=== PATIENT | female | born 1945 | race African-American/Black ===

== ENCOUNTER 2018-04-25 13:32 | Observation (INO) | payer MEDICARE ==
[2018-04-23 18:04] LABS: BASOPHILS % 0.7 % (0.0-1.0); HEMATOCRIT 37.1 % (34.2-44.1); HEMOGLOBIN 12.4 g/dL (12.0-16.0); LYMPHOCYTES # (AUTO) 0.9 (1.0-3.2); LYMPHOCYTES % 15.4 % (18.0-39.1); MEAN CORPUSCULAR HEMOGLOBIN 29.5 pg (28-32); MEAN CORPUSCULAR HGB CONC 33.4 g/dL (31-35); MEAN CORPUSCULAR VOLUME 88.1 fL (81-99); MONOCYTES # (AUTO) 0.1 (0.2-0.8); MONOCYTES % 1.4 % (4.4-11.3); NEUTROPHILS # (AUTO) 4.7 (2.1-6.9); NEUTROPHILS % 82.3 % (38.7-80.0); PLATELET COUNT 202 x10e3/uL (140-360); RED BLOOD COUNT 4.21 x10e6/uL (3.6-5.1); RED CELL DISTRIBUTION WIDTH 12.8 % (11.7-14.4)
[2018-04-23 18:16] LABS: INR 0.95; PROTHROMBIN TIME 13.5 seconds (11.9-14.5)
[2018-04-23 18:25] LABS: ALBUMIN 3.8 g/dL (3.5-5.0); ALBUMIN/GLOBULIN RATIO 0.8 (0.8-2.0); ANION GAP 17.5 mmol/L (8-16); CALCIUM 9.9 mg/dL (8.4-10.2); CHOL/HDL RATIO 2.4 (3.0-3.6); CREATININE, SERUM 1.29 mg/dL (0.57-1.11); POTASSIUM 4.5 mmol/L (3.5-5.1)
[~2018-04-25] VITALS: Ht 162.6 cm; Wt 57.6 kg
--- OUTSIDE RECORDS SUMMARY | 2018-04-25 13:35 | XMS REPORT | Clinical Summary ---
Author Author [facility] Address Unknown Phone Unavailable Care Team Providers Care Merchant Banker Name Role Phone Lg Dawson MD PCP Unavailable Allergies Comments Active Allergy Reactions Severity Noted Date Codeine Nausea And 07/06/2013 Vomiting Iodine And Iodide Anaphylaxis, High 07/06/2013 Containing Products Swelling Medications End Date Status Medication Sig Dispensed Refills Start Date Active isosorbide mononitrate Take 120 mg 0 (IMDUR) 30 MG 24 hr by mouth tablet daily . Active losartan (COZAAR) 100 MG Take 100 mg 0 tablet by mouth daily. Active amLODIPine (NORVASC) 5 MG Take 10 mg by 0 tablet mouth daily . Active diazepam (VALIUM) 2 MG Take 10 mg by 0 tablet mouth every 12 (twelve) hours as needed for Anxiety . Active insulin glargine (LANTUS) Inject 26 0 100 unit/mL injection Units subcutaneousl y nightly Use as directed. Active insulin lispro (HUMALOG) Inject 0 100 unit/mL injection subcutaneousl y 3 (three) times daily before meals. Active nitroglycerin Place 1 spray 0 (NITROLINGUAL) 0.4 under the mg/dose spray tongue every 5 (five) minutes as needed. Active aspirin 325 MG EC tablet Take 325 mg 0 by mouth daily. Active atorvastatin (LIPITOR) 40 Take 40 mg by 0 MG tablet mouth daily. Active folic acid (FOLVITE) 400 Take 400 mcg 0 MCG tablet by mouth daily. Active metoprolol (LOPRESSOR) Take 1 tablet 90 tablet 0 12/20/201 100 MG tablet (100 mg 5 total) by mouth 2 (two) times daily. Active ranolazine (RANEXA) 500 Take 1 tablet 60 tablet 0 12/20/201 MG 12 hr tablet (500 mg 5 total) by mouth 2 (two) times daily. Active omeprazole (PRILOSEC) 40 Take 1 90 capsule 11 04/17/201 MG capsule capsule (40 5 mg total) by mouth 2 (two) times daily. Active Problems Problem Noted Date Upper GI bleed 04/16/2015 Gastric ulcer 04/16/2015 Gastritis 04/16/2015 Abnormal EKG 04-15-2015 x 2 04/16/2015 Anemia 04/16/2015 GI bleed 04/15/2015 Hyperglycemia 04/15/2015 Social History Date Tobacco Use Types Packs/Day Years Used Never Smoker Alcohol Use Drinks/Week oz/Week Comments No Sex Assigned at Date Recorded Not on file Industry Job Start Date Occupation Not on file Not on file Not on file Travel End Travel History Travel Start No recent travel history available. Last Filed Vital Signs Not on file Plan of Treatment Not on file Results Not on fileafter 04/24/2017 Insurance Payer Benefit Subscriber ID Type Phone Address Plan / Group [employer] KELSEYCARE xxxxxxxxxxx MEDICARE ADV MEDICAID MEDICAID xxxxxxxxx Medicaid OF [place] Advance Directives For more information, please contact: [facility] [address] [place] [address] Date Inactivated Comments Code Status Date Activated 04/17/2015 4:21 PM Full Code 04/15/2015 4:54 AM This code status was determined by: Patient
--- OUTSIDE RECORDS SUMMARY | 2018-04-25 13:36 | XMS REPORT | Summary of Care ---
Author Author [facility] Organization [facility] Address Unknown Phone Unavailable Encounter ANGELO العراقي(CHIN) [id number] Date(s): 08/03/15 - 08/03/15 [facility] [address], [address] [place], [place] [address]- [phone] Discharge Diagnosis: Influenza B Discharge Diagnosis: Influenza B Discharge Diagnosis: Acute viral syndrome Discharge Diagnosis: Myalgia Discharge Diagnosis: Acute hypokalemia Discharge Diagnosis: Fever Discharge Diagnosis: Acute viral syndrome Discharge Diagnosis: Fever Discharge Diagnosis: Myalgia Discharge Diagnosis: Acute hypokalemia Discharge Disposition: Home Attending Physician: David Ty MD Vital Signs Most recent to 1 2 oldest [Reference Range]: Height 162.56 cm (08/03/15 6:59 PM) Temperature Oral 100.2 DegF 101.4 DegF [96.4-99.1 DegF] *HI* *HI* (08/03/15 9:34 PM) (08/03/15 6:59 PM) Blood Pressure 148/62 mmHg 157/70 mmHg [90-140/60-90 mmHg] *HI* *HI* (08/03/15 9:34 PM) (08/03/15 6:59 PM) Respiratory Rate 20 BRMIN 20 BRMIN [14-20 BRMIN] (08/03/15 9:34 PM) (08/03/15 6:59 PM) Peripheral Pulse 86 bpm 92 bpm Rate [60-100 bpm] (08/03/15 9:34 PM) (08/03/15 6:59 PM) Weight 50.114 kg (08/03/15 6:59 PM) Body Mass Index 18.96 m2 (08/03/15 6:59 PM) Problem List Condition Effective Dates Status Health Status Informant Breast Resolved cancer(Confirmed) Diabetes Active mellitus(Confirmed) GI bleed(Confirmed) Resolved Heart Active disease(Confirmed) HTN Active (hypertension)(Confi rmed) Allergies, Adverse Reactions, Alerts Substance Reaction Severity Status codeine Active contrast media Active (iodine-based) Medications acetaminophen 650 mg, 2 tab, Route: PO, Drug form: TAB, ONCE, Dosing Weight 50.114, kg, Start date: 08/03/15 19:50:00, Stop date: 08/03/15 19:50:00 Notes: Do not exceed 4 gm/day. (Same as: Tylenol) Start Date: 08/03/15 Stop Date: 08/03/15 Status: Completed ondansetron 4 mg, 1 tab, Route: PO, Drug form: TABDIS, ONCE, Dosing Weight 50.114, kg, Prior ity: STAT, Start date: 08/03/15 19:50:00, Stop date: 08/03/15 19:50:00 Notes: (Same as: Zofran ODT) Start Date: 08/03/15 Stop Date: 08/03/15 Status: Completed potassium chloride 20 mEq oral tablet, extended release 40 mEq, 2 tab, Route: PO, Drug form: ERTAB, ONCE, Dosing Weight 50.114, kg, Prio rity: STAT, Start date: 08/03/15 21:53:00, Stop date: 08/03/15 21:53:00 Notes: (Same as: K-Dur 20)"Do Not Crush" With food and full glass of water Start Date: 08/03/15 Stop Date: 08/03/15 Status: Completed Saline Flush 0.9% 10 mL, Route: IVP, Drug Form: INJ, Dosing Weight 50.114, kg, PRN, PRN Line Flush , Start date: 08/03/15 19:50:00, Duration: 30 day, Stop date: 09/02/15 19:49:00 Notes: (Same as: BD Posiflush) Start Date: 08/03/15 Stop Date: 08/04/15 Status: Discontinued Sodium Chloride 0.9% (Bolus) IV 1,000 mL, 1000 ml/hr, Infuse Over: 1 hr, Route: IV, 1,000, Drug form: INJ, ONCE, Priority: STAT, Dosing Weight 50.114 kg, Start date: 08/03/15 19:50:00, Duratio n: 1 doses or times, Stop date: 08/03/15 19:50:00 Start Date: 08/03/15 Stop Date: 08/03/15 Status: Completed tramadol 100 mg, 2 tab, Route: PO, Drug form: TAB, ONCE, Dosing Weight 50.114, kg, > 50 kg, Priority: STAT, Start date: 08/03/15 19:50:00, Stop date: 08/03/15 19:50:00 Notes: Not to exceed 400mg/day. (Same As: Ultram) Start Date: 08/03/15 Stop Date: 08/03/15 Status: Completed Ultram 50 mg oral tablet 1 - 2 tabs, PO, Q6H, PRN Pain Score 6-10, X 4 day, # 20 tab, 0 Refill(s) Start Date: 08/03/15 Stop Date: 08/07/15 Status: Ordered Results ELECTROLYTES Most recent to 1 oldest [Reference Range]: Sodium Lvl [135-145 135 mEq/L mEq/L] (08/03/15 8:08 PM) Potassium Lvl 3.1 mEq/L [3.5-5.1 mEq/L] *LOW* (08/03/15 8:08 PM) Chloride Lvl [95-109 101 mEq/L mEq/L] (08/03/15 8:08 PM) CO2 [24-32 mEq/L] 25 mEq/L (08/03/15 8:08 PM) AGAP [10.0-20.0 12.1 mEq/L mEq/L] (08/03/15 8:08 PM) CHEM PANEL Most recent to 1 oldest [Reference Range]: Creatinine Lvl 1.03 mg/dL [0.50-1.40 mg/dL] (08/03/15 8:08 PM) eGFR 63 mL/min/1.73m2 1 *NA* (08/03/15 8:08 PM) BUN [7-22 mg/dL] 11 mg/dL (08/03/15 8:08 PM) B/C Ratio [6-25] 11 (08/03/15 8:08 PM) Glucose Lvl [70-99 217 mg/dL mg/dL] *HI* (08/03/15 8:08 PM) Total Protein 7.9 g/dL [6.4-8.4 g/dL] (08/03/15 8:08 PM) Albumin Lvl [3.5-5.0 3.6 g/dL g/dL] (08/03/15 8:08 PM) Globulin [2.0-4.0 4.3 g/dL g/dL] *HI* (08/03/15 8:08 PM) A/G Ratio [0.7-1.6] 0.8 (08/03/15 8:08 PM) Calcium Lvl 8.8 mg/dL [8.5-10.5 mg/dL] (08/03/15 8:08 PM) ALT [0-65 unit/L] 30 unit/L (08/03/15 8:08 PM) AST [0-37 unit/L] 28 unit/L (08/03/15 8:08 PM) Alk Phos [39-136 107 unit/L unit/L] (08/03/15 8:08 PM) Bili Total [0.2-1.3 0.8 mg/dL mg/dL] (08/03/15 8:08 PM) Lactic Acid Lvl 1.6 mMol/L [0.5-2.2 mMol/L] (08/03/15 8:08 PM) 1Result Comment: The eGFR is calculated using the CKD-EPI formula. In most young, healthy individuals the eGFR will be >90 mL/min/1.73m2. The eGFR declines with age. An eGFR of 60-89 may be normal in some populations, particularly the elderly, for whom the CKD-EPI formula has not been extensively validated. Use of the eGFR is not recommended in the following populations: Individuals with unstable creatinine concentrations, including patients and those with serious co-morbid conditions. Patients with extremes in muscle mass or diet. The data above are obtained from the National Kidney Disease Education Program ( NKDEP) which additionally recommends that when the eGFR is used in patients with extremes of body mass index for purposes of drug dosing, the eGFR should be mul tiplied by the estimated BMI. CARDIAC ENZYMES Most recent to 1 oldest [Reference Range]: Troponin-I 0.26 ng/mL [0.00-0.40 ng/mL] (08/03/15 8:08 PM) HEMATOLOGY Most recent to 1 oldest [Reference Range]: WBC [3.7-10.4 K/CMM] 6.5 K/CMM (08/03/15 8:08 PM) RBC [4.20-5.40 4.41 M/CMM M/CMM] (08/03/15 8:08 PM) Hgb [12.0-16.0 g/dL] 12.4 g/dL (08/03/15 8:08 PM) Hct [36.0-48.0 %] 37.8 % (08/03/15 8:08 PM) MCV [80.0-98.0 fL] 85.7 fL (08/03/15 8:08 PM) MCH [27.0-31.0 pg] 28.1 pg (08/03/15 8:08 PM) MCHC [32.0-36.0 32.8 g/dL g/dL] (08/03/15 8:08 PM) RDW [11.5-14.5 %] 12.3 % (08/03/15 8:08 PM) Platelet [133-450 138 K/CMM K/CMM] (08/03/15 8:08 PM) MPV [7.4-10.4 fL] 10.2 fL (08/03/15 8:08 PM) Segs [45.0-75.0 %] 70.1 % (08/03/15 8:08 PM) Lymphocytes 17.9 % [20.0-40.0 %] *LOW* (08/03/15 8:08 PM) Monocytes [2.0-12.0 11.6 % %] (08/03/15 8:08 PM) Eosinophils [0.0-4.0 0.1 % %] (08/03/15 8:08 PM) Basophils [0.0-1.0 0.3 % %] (08/03/15 8:08 PM) Segs-Bands # 4.5 K/CMM [1.5-8.1 K/CMM] (08/03/15 8:08 PM) Lymphocytes # 1.2 K/CMM [1.0-5.5 K/CMM] (08/03/15 8:08 PM) Monocytes # [0.0-0.8 0.8 K/CMM K/CMM] (08/03/15 8:08 PM) RAPID Most recent to 1 oldest [Reference Range]: Grp A Strep Scr Negative [Negative] (08/03/15 8:08 PM) VIRAL - SEROLOGY Most recent to 1 oldest [Reference Range]: Influ A [Negative] Negative (08/03/15 8:08 PM) Influ B [Negative] Positive 1 *ABN* (08/03/15 8:08 PM) 1Result Comment: "Significant Findings called to DR Ty at 08/03/2015 20:43 by TS.Read Back OK." Immunizations No data available for this section Procedures Procedure Date Related Diagnosis Body Site Blood transfusion CABG x 3 - Coronary artery bypass grafts x 3 Mastectomy Social History Social History Type Response Smoking Status Never smoker; Exposure to Tobacco Smoke None; Cigarette Smoking Last 365 Days No; Reg Smoking Cessation Counseling No Assessment and Plan No data available for this section
--- OUTSIDE RECORDS SUMMARY | 2018-04-25 13:36 | XMS REPORT | Summary of Care ---
Author Author [facility] Organization [facility] Address Unknown Phone Unavailable Encounter HQ Dulce Maria(FIN) [id number] Date(s): 07/02/17 - 07/02/17 [facility] [address], [address] [place], [place] [address]- [phone] Encounter Diagnosis Contusion of lower back and pelvis, initial encounter (Final) - 07/09/17 Contusion of right lower leg, initial encounter (Final) - Strain of unspecified muscle(s) and tendon(s) at lower leg level, right leg, ini tial encounter (Final) - Fall on same level from slipping, tripping and stumbling with subsequent strikin g against other object, initial encounter (Final) - Essential (primary) hypertension (Final) - Type 2 diabetes mellitus without complications (Final) - Presence of aortocoronary bypass graft (Final) - Multiple contusions (Discharge Diagnosis) - 07/02/17 Knee strain (Discharge Diagnosis) - 07/02/17 Discharge Disposition: Home or Self Care Attending Physician: Celine Florentino MD Vital Signs Most recent to 1 2 oldest [Reference Range]: Height 162.56 cm (07/02/17 4:51 PM) Temperature Oral 97.9 DegF [96.4-99.1 DegF] (07/02/17 4:51 PM) Blood Pressure 147/67 mmHg 150/72 mmHg [90-140/60-90 mmHg] *HI* *HI* (07/02/17 7:16 PM) (07/02/17 4:51 PM) Respiratory Rate 18 BRMIN 18 BRMIN [14-20 BRMIN] (07/02/17 7:16 PM) (07/02/17 4:51 PM) Peripheral Pulse 62 bpm 60 bpm Rate [60-100 bpm] (3/6/18 7:16 PM) (07/02/17 4:51 PM) Weight 54.091 kg (07/02/17 4:51 PM) Body Mass Index 20.47 m2 (07/02/17 4:51 PM) Problem List Condition Effective Dates Status Health Status Informant Breast Resolved cancer(Confirmed) Diabetes Active mellitus(Confirmed) GI bleed(Confirmed) Resolved Heart Active disease(Confirmed) HTN Active (hypertension)(Confi rmed) SBO (small bowel Resolved obstruction)(Confirm ed) UTI (urinary tract Resolved infection)(Confirmed ) Allergies, Adverse Reactions, Alerts Substance Reaction Severity Status codeine Active contrast media Active (iodine-based) Medications No data available for this section Results No data available for this section Immunizations No data available for this section Procedures Procedure Date Related Diagnosis Body Site Status Blood transfusion Completed CABG x 3 - Coronary artery bypass grafts x 3 Completed Gallbladder operation Completed Mastectomy Completed Social History Social History Type Response Smoking Status Never smoker; Exposure to Tobacco Smoke None; Cigarette Smoking Last 365 Days No; Reg Smoking Cessation Counseling No entered on: 07/02/17 Assessment and Plan No data available for this section
--- OUTSIDE RECORDS SUMMARY | 2018-04-25 13:36 | XMS REPORT | Summary of Care ---
Author Author [facility] Organization [facility] Address Unknown Phone Unavailable Encounter ANGELO العراقي(CHIN) [id number] Date(s): 12/12/15 - 12/12/15 [facility] [address], [place] [place], [place] [address]- [phone] Discharge Diagnosis: Acute maxillary sinusitis, unspecified Discharge Disposition: Home or Self Care Attending Physician: Minesh Galicia MD Vital Signs Most recent to 1 2 oldest [Reference Range]: Height 162.56 cm (12/12/15 3:10 PM) Temperature Oral 97.7 DegF 98.0 DegF [96.4-99.1 DegF] (12/12/15 4:30 PM) (12/12/15 3:10 PM) Blood Pressure 145/68 mmHg 141/63 mmHg [90-140/60-90 mmHg] *HI* *HI* (12/12/15 4:30 PM) (12/12/15 3:10 PM) Respiratory Rate 18 BRMIN 16 BRMIN [14-20 BRMIN] (12/12/15 4:30 PM) (12/12/15 3:10 PM) Peripheral Pulse 64 bpm 64 bpm Rate [60-100 bpm] (12/12/15 4:30 PM) (12/12/15 3:10 PM) Weight 51.364 kg (12/12/15 3:10 PM) Body Mass Index 19.44 m2 (12/12/15 3:10 PM) Problem List Condition Effective Dates Status Health Status Informant Breast Resolved cancer(Confirmed) Diabetes Active mellitus(Confirmed) GI bleed(Confirmed) Resolved Heart Active disease(Confirmed) HTN Active (hypertension)(Confi rmed) SBO (small bowel Resolved obstruction)(Confirm ed) UTI (urinary tract Resolved infection)(Confirmed ) Allergies, Adverse Reactions, Alerts Substance Reaction Severity Status codeine Active contrast media Active (iodine-based) Medications Augmentin 875 mg oral tablet 875 mg=1 tab, PO, BID, X 10 day, # 20 tab, 0 Refill(s) Start Date: 12/12/15 Stop Date: 12/22/15 Status: Ordered Debrox Earwax Removal Kit 6.5% otic solution 5 drp, OTIC, TID, X 10 day, # 15 ml, 0 Refill(s) Start Date: 12/12/15 Stop Date: 12/22/15 Status: Ordered Results No data available for this section Immunizations No data available for this section Procedures Procedure Date Related Diagnosis Body Site Blood transfusion CABG x 3 - Coronary artery bypass grafts x 3 Gallbladder operation Mastectomy Social History Social History Type Response Smoking Status Never smoker; Exposure to Tobacco Smoke None; Cigarette Smoking Last 365 Days No; Reg Smoking Cessation Counseling No Assessment and Plan No data available for this section
--- OUTSIDE RECORDS SUMMARY | 2018-04-25 13:36 | XMS REPORT | Summary of Care ---
Author Author [facility] Organization [facility] Address Unknown Phone Unavailable Encounter ANGELO العراقي(CHIN) [id number] Date(s): 08/04/15 - 08/04/15 [facility] [address], [address] [place], [place] [address]- [phone] Discharge Diagnosis: Nausea, vomiting, and diarrhea Discharge Diagnosis: Acute gastroenteritis Discharge Diagnosis: Acute viral syndrome Discharge Disposition: Home Attending Physician: David Ty MD Vital Signs Most recent to 1 2 oldest [Reference Range]: Height 162.56 cm (08/04/15 6:54 PM) Temperature Oral 98.1 DegF 98.7 DegF [96.4-99.1 DegF] (08/04/15 10:52 PM) (08/04/15 6:54 PM) Blood Pressure 171/77 mmHg 159/72 mmHg [90-140/60-90 mmHg] *HI* *HI* (08/04/15 10:52 PM) (08/04/15 6:54 PM) Respiratory Rate 16 BRMIN 18 BRMIN [14-20 BRMIN] (08/04/15 10:52 PM) (08/04/15 6:54 PM) Peripheral Pulse 69 bpm 78 bpm Rate [60-100 bpm] (08/04/15 10:52 PM) (08/04/15 6:54 PM) Weight 50.455 kg (08/04/15 6:54 PM) Body Mass Index 19.09 m2 (08/04/15 6:54 PM) Problem List Condition Effective Dates Status Health Status Informant Breast Resolved cancer(Confirmed) Diabetes Active mellitus(Confirmed) GI bleed(Confirmed) Resolved Heart Active disease(Confirmed) HTN Active (hypertension)(Confi rmed) Allergies, Adverse Reactions, Alerts Substance Reaction Severity Status codeine Active contrast media Active (iodine-based) Medications Bentyl 20 mg oral tablet 20 mg=1 tab, PO, QID, # 20 tab, 0 Refill(s) Start Date: 08/04/15 Status: Ordered ketOROLAC 30 mg, Route: IVP, Drug form: INJ, ONCE, Dosing Weight 50.455, kg, Priority: STA T, Start date: 08/04/15 20:45:00, Stop date: 08/04/15 20:45:00 Start Date: 08/04/15 Stop Date: 08/04/15 Status: Completed ondansetron 4 mg oral tablet, disintegrating 4 mg=1 tab, PO, TID, PRN Nausea / Vomiting, Dissolve tab under tongue, X 5 day, # 15 tab, 0 Refill(s) Start Date: 08/04/15 Stop Date: 08/09/15 Status: Ordered Sodium Chloride 0.9% (Bolus) IV 1,000 mL, 1000 ml/hr, Infuse Over: 1 hr, Route: IV, 1,000, Drug form: INJ, ONCE, Priority: STAT, Dosing Weight 50.114 kg, Start date: 08/04/15 18:57:00, Duratio n: 1 doses or times, Stop date: 08/04/15 18:57:00 Start Date: 08/04/15 Stop Date: 08/04/15 Status: Completed Zofran 4 mg, 2 mL, Route: IVP, Drug form: INJ, ONCE, Dosing Weight 50.114, kg, Priority : STAT, Start date: 08/04/15 18:57:00, Stop date: 08/04/15 18:57:00 Notes: (Same as: Zofran) MEDICATION WASTE Product Size: 4 mgProduct Was debbie: ___ mg Start Date: 08/04/15 Stop Date: 08/04/15 Status: Completed Results ELECTROLYTES Most recent to 1 oldest [Reference Range]: Sodium Lvl [135-145 140 mEq/L mEq/L] (08/04/15 7:05 PM) Potassium Lvl 4.2 mEq/L [3.5-5.1 mEq/L] (08/04/15 7:05 PM) Chloride Lvl [95-109 107 mEq/L mEq/L] (08/04/15 7:05 PM) CO2 [24-32 mEq/L] 26 mEq/L (08/04/15 7:05 PM) AGAP [10.0-20.0 11.2 mEq/L mEq/L] (08/04/15 7:05 PM) CHEM PANEL Most recent to 1 oldest [Reference Range]: Creatinine Lvl 0.84 mg/dL [0.50-1.40 mg/dL] (08/04/15 7:05 PM) eGFR 81 mL/min/1.73m2 1 *NA* (08/04/15:05 PM) BUN [7-22 mg/dL] 11 mg/dL (08/04/15 7:05 PM) Glucose Lvl [70-99 142 mg/dL mg/dL] *HI* (08/04/15:05 PM) Calcium Lvl 8.5 mg/dL [8.5-10.5 mg/dL] (08/04/15 7:05 PM) 1Result Comment: The eGFR is calculated [...] be mul tiplied by the estimated BMI. HEMATOLOGY Most recent to 1 oldest [Reference Range]: WBC [3.7-10.4 K/CMM] 5.7 K/CMM (08/04/15 7:05 PM) RBC [4.20-5.40 4.42 M/CMM M/CMM] (08/04/15:05 PM) Hgb [12.0-16.0 g/dL] 12.1 g/dL (08/04/15 7:05 PM) Hct [36.0-48.0 %] 38.8 % (08/04/15:05 PM) MCV [80.0-98.0 fL] 87.8 fL (08/04/15 7:05 PM) MCH [27.0-31.0 pg] 27.4 pg (08/04/15 7:05 PM) MCHC [32.0-36.0 31.2 g/dL g/dL] *LOW* (08/04/15 7:05 PM) RDW [11.5-14.5 %] 12.6 % (08/04/15 7:05 PM) Platelet [133-450 127 K/CMM K/CMM] *LOW* (08/04/15 7:05 PM) MPV [7.4-10.4 fL] 10.3 fL (08/04/15 7:05 PM) Segs [45.0-75.0 %] 62.2 % (08/04/15 7:05 PM) Lymphocytes 28.4 % [20.0-40.0 %] (08/04/15 7:05 PM) Monocytes [2.0-12.0 8.2 % %] (08/04/15 7:05 PM) Eosinophils [0.0-4.0 0.3 % %] (08/04/15 7:05 PM) Basophils [0.0-1.0 0.9 % %] (08/04/15 7:05 PM) Segs-Bands # 3.5 K/CMM [1.5-8.1 K/CMM] (08/04/15 7:05 PM) Lymphocytes # 1.6 K/CMM [1.0-5.5 K/CMM] (08/04/15 7:05 PM) Monocytes # [0.0-0.8 0.5 K/CMM K/CMM] (08/04/15 7:05 PM) Basophils # [0.0-0.2 0.1 K/CMM K/CMM] (08/04/15 7:05 PM) Immunizations No data available for this section [...]
--- OUTSIDE RECORDS SUMMARY | 2018-04-25 13:36 | XMS REPORT | Continuity of Care Document ---
Author Author [facility] Interface Address Unknown Phone Unavailable Problems Problem Status Onset Date Classification Date Reported Comments Source LT HEART CATH Active 04/17/2018 [facility] Acute folliculitis 08/02/2017 Diagnosis 08/02/2017 [facility] Contusion of lower back and pelvis, initial encounter 07/10/2017 10/08/2017 [facility] Multiple contusions 07/02/2017 10/08/2017 [facility] Knee strain 07/02/2017 10/08/2017 [facility] Osteopenia 06/20/2017 Problem 08/02/2017 [facility] FALL/ LOWER BODY PAIN Active 06/18/2017 [facility] Long-term current use of antiplatelet drug 03/25/2017 Diagnosis 08/02/2017 [facility] Dysuria 03/20/2017 Diagnosis 08/02/2017 [facility] Diarrhea 03/20/2017 Diagnosis 08/02/2017 [facility] Nausea 03/20/2017 Diagnosis 08/02/2017 [facility] Abdominal pain 03/20/2017 Diagnosis 08/02/2017 [facility] Screening for osteoporosis 03/20/2017 Diagnosis 08/02/2017 [facility] Screening for malignant neoplasm of colon 03/20/2017 Diagnosis 08/02/2017 [facility] Hiatal hernia 03/20/2017 Diagnosis 08/02/2017 [facility] Long-term current use of anticoagulant 03/20/2017 Diagnosis 08/02/2017 [facility] Coronary bypass graft finding 03/20/2017 Diagnosis 08/02/2017 [facility] Adult health examination 03/20/2017 Diagnosis 08/02/2017 [facility] Advance directive discussed with patient 03/20/2017 Diagnosis 08/02/2017 [facility] Depression screening 03/20/2017 Diagnosis 08/02/2017 [facility] Gastroesophageal reflux disease without esophagitis 12/18/2016 Diagnosis 08/02/2017 [facility] Empty sella syndrome 12/18/2016 Diagnosis 08/02/2017 [facility] Anorexia symptom 12/18/2016 Diagnosis 08/02/2017 [facility] Body mass index 20-24 - normal 12/18/2016 Diagnosis 08/02/2017 [facility] Empty Sella Syndrome 12/18/2016 Problem 08/02/2017 [facility] Gastroesophageal Reflux Disease without Esophagitis 12/18/2016 Problem 08/02/2017 [facility] Stable angina 09/17/2016 Diagnosis 08/02/2017 [facility] Shoulder pain 06/11/2016 Diagnosis 08/02/2017 [facility] History of mastectomy 06/11/2016 Diagnosis 08/02/2017 [facility] Personal history of primary malignant neoplasm of breast 06/11/2016 Diagnosis 08/02/2017 [facility] Coronary arteriosclerosis in [place] artery 06/11/2016 Diagnosis 08/02/2017 [facility] Type II diabetes mellitus uncontrolled 05/04/2016 Diagnosis 08/02/2017 [facility] Type II Diabetes Mellitus Uncontrolled 05/04/2016 Problem 08/02/2017 [facility] Hiatal Hernia 04/09/2016 Problem 08/02/2017 [facility] Long-term Current Use of Anticoagulant 04/09/2016 Problem 08/02/2017 [facility] Coronary Arteriosclerosis in [place] Artery 03/28/2016 Problem 08/02/2017 [facility] Type 2 diabetes mellitus 03/07/2016 Diagnosis 08/02/2017 [facility] Peripheral Arterial Occlusive Disease 03/01/2016 Problem 08/02/2017 [facility] UNK Active 02/29/2016 [facility] I73.9 Active 02/29/2016 [facility] Tension-type headache 02/17/2016 Diagnosis 08/02/2017 [facility] Immunization 02/17/2016 Diagnosis 08/02/2017 [facility] Mixed hyperlipidemia 02/17/2016 Diagnosis 08/02/2017 [facility] Hypertensive heart disease 02/17/2016 Diagnosis 08/02/2017 [facility] Type 2 diabetes mellitus without complication 02/17/2016 Diagnosis 08/02/2017 [facility] History of gastrointestinal disease 01/31/2016 Diagnosis 08/02/2017 [facility] Headache 01/31/2016 Diagnosis 08/02/2017 [facility] Cellulitis of abdominal wall 01/31/2016 Diagnosis 08/02/2017 [facility] Discharge Diagnosis: Acute maxillary sinusitis, unspecified 12/12/2015 12/15/2015 [facility] HEADACHE Active 12/12/2015 [facility] Type 2 Diabetes Mellitus 08/31/2015 Problem 08/02/2017 [facility] Discharge Diagnosis: Nausea, vomiting, and diarrhea 08/04/2015 08/07/2015 [facility] Discharge Diagnosis: Acute gastroenteritis 08/04/2015 08/07/2015 [facility] Discharge Diagnosis: Acute viral syndrome 08/04/2015 08/07/2015 [facility] Discharge Diagnosis: Fever 08/04/2015 08/06/2015 [facility] Discharge Diagnosis: Acute hypokalemia 08/04/2015 08/06/2015 [facility] Discharge Diagnosis: Myalgia 08/04/2015 08/06/2015 [facility] Discharge Diagnosis: Acute viral syndrome 08/04/2015 08/06/2015 [facility] Discharge Diagnosis: Influenza B 08/04/2015 08/06/2015 [facility] NAUSEA, VOMITING Active 08/04/2015 [facility] Discharge Diagnosis: Influenza B 08/03/2015 08/06/2015 [facility] Discharge Diagnosis: Fever 08/03/2015 08/06/2015 [facility] Discharge Diagnosis: Myalgia 08/03/2015 08/06/2015 [facility] Discharge Diagnosis: Acute hypokalemia 08/03/2015 08/06/2015 [facility] COUGH Active 08/03/2015 [facility] Type 2 Diabetes Mellitus without Complication 05/13/2015 Problem 08/02/2017 [facility] Mixed Hyperlipidemia 05/13/2015 Problem 08/02/2017 [facility] Anxiety 05/13/2015 Problem 08/02/2017 [facility] Hypertensive Heart Disease 05/13/2015 Problem 08/02/2017 [facility] Personal History of Primary Malignant Neoplasm of Breast 05/13/2015 Problem 08/02/2017 [facility] History of Gastrointestinal Disease 05/13/2015 Problem 08/02/2017 [facility] Coronary Bypass Graft Finding 05/13/2015 Problem 08/02/2017 [facility] V10.3 - HX OF BREAST MA Active 01/22/2013 [facility] Outpatient Imaging [facility] V76.11 - SCREEN MAMMOGRA Active 06/25/2012 [facility]------[phone] Active 05/30/2012 [facility] History of Mastectomy 04/29/1996 Problem 08/02/2017 [facility] Breast cancer Resolved Problem 10/08/2017 [facility] Diabetes mellitus Active Problem 10/08/2017 [facility] GI bleed Resolved Problem 10/08/2017 [facility] Heart disease Active Problem 10/08/2017 [facility] HTN (<span ID="[id number]">Confirmed</span>) Active Problem 10/08/2017 [facility] SBO (<span ID="[id number]">Confirmed</span>) Resolved Problem 10/08/2017 [facility] UTI (<span ID="[id number]">Confirmed</span>) Resolved Problem 10/08/2017 [facility] Contusion of right lower leg, initial encounter 10/08/2017 [facility] Strain of unspecified muscle and tendon(s) at lower leg level, right leg, initial encounter 10/08/2017 [facility] Fall on same level from slipping, tripping and stumbling with subsequent striking against other object, initial encounter 10/08/2017 [facility] Essential hypertension 10/08/2017 [facility] Type 2 diabetes mellitus without complications 10/08/2017 [facility] Presence of aortocoronary bypass graft 10/08/2017 [facility] Medications Medication Details Route Status Patient Instructions Ordering Provider Order Date Source Flonase 50 mcg/Actuation nasl susp Flonase 50 mcg/Actuation nasl susp Inhale 1 spray every day by intranasal route. Active 12/18/2016 [facility] Nitroglycerin 0.4 MG Sublingual Tablet nitroglycerin 0.[address] 1 tablet every day by sublingual route. Active 12/18/2016 [facility] Insulin Lispro 25 UNT/ML / Insulin, Protamine Lispro, Human 75 UNT/ML Injectable Suspension [Humalog Mix] Humalog Mix 75-25 (U-100) Insulin 100 unit/mL subcutaneous suspension INJECT 10-25 UNITS TWICE A DAY WITH BREAKFAST AND DINNER Active 09/10/2016 [facility] Baclofen 10 MG Oral Tablet baclofen 10 mg tablet take 1 tablet at onset of headache Active 06/11/2016 [facility] 3 ML Insulin Lispro 100 UNT/ML Pen Injector [Humalog] Humalog KwikPen (U-100) Insulin 100 unit/mL subcutaneous Inject 10 units every day by subcutaneous route with meals. Active 05/04/2016 [facility] 3 ML Insulin Glargine 100 UNT/ML Pen Injector [Lantus] Lantus Solostar U-100 Insulin 100 unit/mL (3 mL) subcutaneous pen Inject 28 units every day by subcutaneous route in the evening. Active 05/04/2016 [facility] Amoxicillin 875 MG / Clavulanate 125 MG Oral Tablet [Augmentin] Augmentin 875 mg-125 mg tablet Take 1 tablet every 12 hours by oral route for 5 days. Active 02/17/2016 [facility] carbamide peroxide 65 MG/ML Otic Solution [Debrox] 5 drp, OTIC, TID, X 10 day, # 15 ml, 0 Refill(s) Active 12/12/2015 [facility] Amoxicillin 875 MG / Clavulanate 125 MG Oral Tablet [Augmentin 875-mg] 875 mg=1 tab, PO, BID, X 10 day, # 20 tab, 0 Refill(s) Active 12/12/2015 [facility] Ondansetron 4 MG Disintegrating Tablet 4 mg=1 tab, PO, TID, PRN Nausea / Vomiting, Dissolve tab under tongue, X 5 day, # 15 tab, 0 Refill(s) Active 08/05/2015 [facility] Dicyclomine Hydrochloride 20 MG Oral Tablet [Bentyl] 20 mg=1 tab, PO, QID, # 20 tab, 0 Refill(s) Active 08/05/2015 [facility] Ketorolac 30 mg, Route: IVP, Drug form: INJ, ONCE, Dosing Weight 50.455, kg, Priority: STAT, Start date: 08/04/15 20:45:00, Stop date: 08/04/15 20:45:00 Inactive 08/05/2015 [facility] Sodium Chloride 0.154 MEQ/ML Injectable Solution 1,000 mL, 1000 ml/hr, Infuse Over: 1 hr, Route: IV, 1,000, Drug form: INJ, ONCE, Priority: STAT, Dosing Weight 50.114 kg, Start date: 08/04/15 18:57:00, Duration: 1 doses or times, Stop date: 08/04/15 18:57:00 Inactive 08/04/2015 [facility] Zofran 4 mg, 2 mL, Route: IVP, Drug form: INJ, ONCE, Dosing Weight 50.114, kg, Priority: STAT, Start date: 08/04/15 18:57:00, Stop date: 08/04/15 18:57:00Notes: (Same as: Zofran) MEDICATION WASTE Product Size: 4 mg Product Wasted: ___ mg Inactive 08/04/2015 [facility] tramadol hydrochloride 50 MG Oral Tablet [Ultram] 1 - 2 tabs, PO, Q6H, PRN Pain Score 6-10, X 4 day, # 20 tab, 0 Refill(s) Active 08/04/2015 [facility] Potassium Chloride 20 MEQ Extended Release Tablet 40 mEq, 2 tab, Route: PO, Drug form: ERTAB, ONCE, Dosing Weight 50.114, kg, Priority: STAT, Start date: 08/03/15 21:53:00, Stop date: 08/03/15 21:53:00Notes: (Same as: K-Dur 20) "Do Not Crush" With food and full glass of water Inactive 08/04/2015 [facility] Ondansetron 4 mg, 1 tab, Route: PO, Drug form: TABDIS, ONCE, Dosing Weight 50.114, kg, Priority: STAT, Start date: 08/03/15 19:50:00, Stop date: 08/03/15 19:50:00Notes: (Same as: Casi KHALILT) Inactive 08/04/2015 [facility] Sodium Chloride 0.154 MEQ/ML Injectable Solution 1,000 mL, 1000 ml/hr, Infuse Over: 1 hr, Route: IV, 1,000, Drug form: INJ, ONCE, Priority: STAT, Dosing Weight 50.114 kg, Start date: 08/03/15 19:50:00, Duration: 1 doses or times, Stop date: 08/03/15 19:50:00 Inactive 08/04/2015 [facility] Tramadol 100 mg, 2 tab, Route: PO, Drug form: TAB, ONCE, Dosing Weight 50.114, kg, > 50 kg, Priority: STAT, Start date: 08/03/15 19:50:00, Stop date: 08/03/15 19:50:00Notes: Not to exceed 400mg/day. (Same As: Ultram) Inactive 08/04/2015 [facility] Acetaminophen 650 mg, 2 tab, Route: PO, Drug form: TAB, ONCE, Dosing Weight 50.114, kg, Start date: 08/03/15 19:50:00, Stop date: 08/03/15 19:50:00Notes: Do not exceed 4 gm/day. (Same as: Tylenol) Inactive 08/04/2015 [facility] Saline Flush 0.9% 10 mL, Route: IVP, Drug Form: INJ, Dosing Weight 50.114, kg, PRN, PRN Line Flush, Start date: 08/03/15 19:50:00, Duration: 30 day, Stop date: 09/02/15 19:49:00Notes: (Same as: XIOMARA Posiflush) No Longer Active 08/04/2015 [facility] Accu-Chek Macey strips Accu-Chek Macey strips Check blood glucose 2 - 3 times a day Active [facility] Amlodipine 10 MG Oral Tablet amlodipine 10 mg tablet Take 1 tablet every day by oral route. Active [facility] atorvastatin 40 MG Oral Tablet atorvastatin 40 mg tablet TAKE 1 TABLET ONCE A DAY ORALLY 90 DAYS Active [facility] Calcium Carbonate 1250 MG / Cholecalciferol 125 UNT Oral Tablet Calcium 500 mg (1,250 mg) + D3 125 unit tablet Take 1 tablet every day by oral route. Active [facility] clopidogrel 75 MG Oral Tablet clopidogrel 75 mg tablet Take 1 tablet every day by oral route. Active [facility] dexlansoprazole 60 MG Delayed Release Oral Capsule [Dexilant] Dexilant 60 mg capsule, delayed release Take 1 capsule every day by oral route for 90 days. Active [facility] Diazepam 10 MG Oral Tablet diazepam 10 mg tablet Take 1 tablet every day by oral route as needed for 30 days. Active [facility] Fluticasone propionate 0.05 MG/ACTUAT Metered Dose Nasal [place] fluticasone 50 mcg/actuation nasal spray,suspension USE 2 SPRAY IN EACH NOSTRIL ONCE A DAY NASALLY 30 DAY(S) Active [facility] Folic Acid 0.4 MG Oral Tablet folic acid 400 mcg tablet Take 1 tablet every day by oral route. Active [facility] 24 HR Isosorbide Mononitrate 120 MG Extended Release Oral Tablet isosorbide mononitrate ER 120 mg tablet,extended release 24 hr Take 1 tablet every day by oral route. Active [facility] sitagliptin 100 MG Oral Tablet [Januvia] Januvia 100 mg tablet TAKE 1 TABLET BY MOUTH EVERY DAY Active [facility] 3 ML insulin detemir 100 UNT/ML Pen Injector [Levemir] Levemir FlexTouch U-100 Insulin 100 unit/mL (3 mL) subcutaneous pen INJECT 10-30 UNITS SUBCUTANEOUSLY AT BEDTIME DIRECTED Active [facility] Loperamide Hydrochloride 2 MG Oral Tablet loperamide 2 mg tablet Take 2 tablets 4 times a day by oral route as needed for 30 days. Active [facility] Losartan Potassium 100 MG Oral Tablet losartan 100 mg tablet Take 1 tablet every day by oral route. Active [facility] Megestrol Acetate 40 MG/ML Oral Suspension megestrol 400 mg/10 mL (40 mg/mL) oral suspension TAKE 10 ML BY MOUTH EVERY DAY Active [facility] meloxicam 15 MG Oral Tablet meloxicam 15 mg tablet take 1 tablet every day for 1 week; rest 1 week and repeat Active [facility] Metformin hydrochloride 500 MG Oral Tablet metformin 500 mg tablet TAKE 1 TABLET BY MOUTH TWICE A DAY Active [facility] Metoprolol Tartrate 100 MG Oral Tablet metoprolol tartrate 100 mg tablet TAKE 1 TABLET BY MOUTH TWICE A DAY Active [facility] Mupirocin 0.02 MG/MG Topical Ointment mupirocin 2 % topical ointment APPLY A SMALL AMOUNT TO THE AFFECTED AREA BY TOPICAL ROUTE 3 TIMES PER DAY Active [facility] Nitroglycerin 0.4 MG/ACTUAT Mucosal [place] nitroglycerin 400 mcg/spray translingual APPLY 1 PUFF ON TONGUE TRANSLINGUALLY EVERY DAY Active [facility] NovoFine 30 30 gauge x 1/3" needle NovoFine 30 30 gauge x 1/3" needle USE DIRECTED TWICE A DAY Active [facility] 3 ML Insulin, Aspart Protamine, Human 70 UNT/ML / Insulin, Aspart, Human 30 UNT/ML Pen Injector [NovoLog Mix] Novolog Mix 70-30 FlexPen U- 100 Insulin 100 unit/mL subcutaneous pen INJECT 10-25 UNITS TWICE A DAY WITH BREAKFAST AND DINNER Active [facility] Ondansetron 8 MG Oral Tablet ondansetron HCl 8 mg tablet Take 1 tablet every 8 hours by oral route as needed for 15 days. Active [facility] Sulfamethoxazole 800 MG / Trimethoprim 160 MG Oral Tablet sulfamethoxazole 800 mg-trimethoprim 160 mg tablet Take 1 tablet every 12 hours by oral route for 10 days. Active [facility] Allergies, Adverse Reactions, Alerts Substance Category Reaction Severity Reaction type Status Date Reported Comments Source Codeine Sulfate Allergy to substance 10/11/2015 [facility] Iodinated Contrast- Oral and Iv Dye Allergy to substance 10/11/2015 [facility] codeine Assertion Drug allergy Active [facility] contrast media (iodine-based) Assertion Drug allergy Active [facility] Immunizations Immunization Date Given Site Status Last Updated Comments Source influenza, injectable, quadrivalent, preservative free 03/20/2017 completed [facility] influenza, high dose seasonal 02/17/2016 completed [facility] pneumococcal conjugate PCV 13 04/29/2014 completed [facility] Tdap 04/29/2014 completed [facility] Results Order Name Results Value Reference Range Date Interpretation Comments Source Pelvis AP DX Pelvis AP DX Patient Name: SUJEY ARDON : 1945; Age: 72 years y/o Female MR: [id number] Study: Pelvis AP DX 07/02/2017 5:05 PM [facility]IP PR[facility]ER INDICATIONS: - trauma COMPARISONS: None FINDINGS: PELVIS 1 VIEW: AP view of the pelvis was obtained. There is no evidence of fracture of the bony pelvis. The lower spine and SI joints appear in normal relationship. The hip joints also are within normal limits and show no fracture or dislocation. Within the pelvis, there is no evidence of mass effect. No unusual calcifications are present. The bony architecture is normal. IMPRESSION: 1. Negative pelvis x-ray. SL: [id number] 07/02/2017 - - Read by: Sergo Carcamo DO Dictated Date/time: 07/02/17 18:24 Electronically Signed by: Sergo Carcamo DO 07/02/17 18:41 FINAL REPORT [facility] Sacrum/coccyx series DX Sacrum/coccyx series DX Clinical Indication: Back pain after a fall Comparison: None FINDINGS: The AP and lateral views of the sacrum and coccyx show normal alignment. There is normal alignment of the coccygeal osseous segments. There are no fractures noted. The presacral space is unremarkable. The visualized sacral foramina and sacroiliac joints are unremarkable. If there is further concern, recommend followup radiographs or bone scan for complete assessment. Impression: Unremarkable sacrum and coccyx radiographs. SL: [id number] 07/02/2017 - - Read by: Erich George MD Dictated Date/time: 07/02/17 18:22 Electronically Signed by: Erich George MD 07/02/17 18:23 FINAL REPORT [facility] Spine lumbar series DX Spine lumbar series DX Clinical Indication: Low back pain after a fall Comparison: None FINDINGS: The AP, oblique and lateral views of the lumbar spine show five non rib bearing lumbar vertebral segments. There are no fractures, pars defects, or spondylolisthesis. The disc spaces are normal without significant degenerative disc disease. The posterior elements, spinous processes and transverse processes are normal. The paraspinal soft tissues are unremarkable. The visualized sacroiliac joints are unremarkable. Severe vascular calcifications are present. If there is further concern or neurological abnormalities on clinical exam, MRI or CT of the lumbar spine may be performed for complete assessment. IMPRESSION: Unremarkable lumbar spine series. SL: [id number] 07/02/2017 - - Read by: Erich George MD Dictated Date/time: 07/02/17 18:21 Electronically Signed by: Erich George MD 07/02/17 18:21 FINAL REPORT [facility] Knee series 3 views DX Knee series 3 views DX Patient Name: SUJEY ARDON : 1945; Age: 72 years y/o Female MR: [id number] Study: Knee series 3 views DX 07/02/2017 5:05 PM [facility] Ordering Physician:Paulo Agee Clinical Indication: - trauma; fall, x 10 days with right knee pain Comparison: None EXAM: Right Knee Xray FINDINGS: There is no fracture or dislocation appreciated. IMPRESSION: No acute pathology appreciated. If there is ongoing clinical concern, follow-up imaging recommended. SL: [id number] 07/02/2017 - - Read by: Taylor Arguelles MD Dictated Date/time: 07/02/17 18:24 Electronically Signed by: Taylor Arguelles MD 07/02/17 18:27 FINAL REPORT [facility] 25-Hydroxyvitamin D [Mass/volume] in Serum or Plasma vitamin D 25OH 33.8 NG/mL 30.0 - 96.0 06/20/2017 [facility] Comprehensive metabolic 1999 panel - Serum or Plasma ALT 16 U/L 0 - 55 06/20/2017 [facility] Comprehensive metabolic 1999 panel - Serum or Plasma AST 19 U/L 5 - 34 06/20/2017 [facility] Comprehensive metabolic 1999 panel - Serum or Plasma BUN 7.1 mg/dL 9.8 - 20.1 06/20/2017 [facility] Comprehensive metabolic 1999 panel - Serum or Plasma alk phos 142 unit/L 40 - 150 06/20/2017 [facility] Comprehensive metabolic 1999 panel - Serum or Plasma glucose 321 mg/dL 70 - 99 06/20/2017 [facility] Comprehensive metabolic 1999 panel - Serum or Plasma albumin 3.3 g/dL 3.5 - 5.0 06/20/2017 [facility] Comprehensive metabolic 1999 panel - Serum or Plasma creatinine 0.87 mg/dL 0.57 - 1.11 06/20/2017 [facility] Comprehensive metabolic 1999 panel - Serum or Plasma eGFR non- >60 >60 06/20/2017 [facility] Comprehensive metabolic 1999 panel - Serum or Plasma total bilirubin 0.6 mg/dL 0.2 - 1.2 06/20/2017 [facility] Comprehensive metabolic 1999 panel - Serum or Plasma eGFR - >60 >60 06/20/2017 [facility] Comprehensive metabolic 1999 panel - Serum or Plasma sodium 137 mEq/L 136 - 145 06/20/2017 [facility] Comprehensive metabolic 1999 panel - Serum or Plasma potassium 3.6 mEq/L 3.5 - 5.1 06/20/2017 [facility] Comprehensive metabolic 1999 panel - Serum or Plasma chloride 101 mmol/L 98 - 107 06/20/2017 [facility] Comprehensive metabolic 1999 panel - Serum or Plasma total protein 7.4 g/dL 6.4 - 8.3 06/20/2017 [facility] Comprehensive metabolic 1999 panel - Serum or Plasma calcium 9.1 mg/dL 8.4 - 10.2 06/20/2017 [facility] Comprehensive metabolic 1999 panel - Serum or Plasma CO2 27.1 mmol/L 23.0 - 31.0 06/20/2017 [facility] Comprehensive metabolic 1999 panel - Serum or Plasma anion gap 9 calc 06/20/2017 [facility] Lipid 1995 panel - Serum or Plasma HDL 53 mg/dL 40 - 60 06/20/2017 [facility] Lipid 1995 panel - Serum or Plasma triglyceride 89 mg/dL 0 - 149 06/20/2017 [facility] Lipid 1995 panel - Serum or Plasma VLDL calc. 18 mg/dL 06/20/2017 [facility] Lipid 1995 panel - Serum or Plasma cholesterol/HDL ratio 2.6 mg/dL 06/20/2017 [facility] Lipid 1995 panel - Serum or Plasma non-HDL cholesterol calc. 85 mg/dL 0 - 160 06/20/2017 [facility] Lipid 1995 panel - Serum or Plasma cholesterol 138 mg/dL 0 - 199 06/20/2017 [facility] Lipid 1995 panel - Serum or Plasma LDL calc. 67 mg/dL 0 - 130 06/20/2017 [facility] Hemoglobin A1c/Hemoglobin.total in Blood A1C w/EAG 10.7 % 1.0 - 5.7 06/20/2017 [facility] Hemoglobin A1c/Hemoglobin.total in Blood average blood glucose 260 mg/dL 06/20/2017 [facility] Breast Mammo Scrn UNI incl CAD MA Breast Mammo Scrn UNI incl CAD MA UNILATERAL LEFT DIGITAL SCREENING MAMMOGRAM WITH CAD: 05/22/2017 CLINICAL: Screening/Z12.31. Current study was evaluated with a Computer Aided Detection (CAD) system. COMPARISON:Comparison is made to exam dated: 07/02/2012 mammogram - [facility]. TECHNIQUE: Mammographic views were obtained using digital acquisition. Current study was also evaluated with a Computer Aided Detection (CAD) system. FINDINGS: The tissue of left breast is heterogeneously dense, which could obscure detection of small masses. There are benign vascular calcifications in the left breast. There also is a stable benign mass in the left breast. No significant masses, calcifications, or other findings are seen in the breast. There has been no significant interval change. IMPRESSION: BENIGN RECOMMENDATION:There is no mammographic evidence of malignancy. A 1 year screening left mammogram is recommended.(05/23/2018) This exam was interpreted at [id number] at [facility] [place]. Professional services are provided by the [facility]. Cinthia Katz M.D. sm/penrad:05/23/2017 10:06:42 Disciplinary Hearing Officer(s): LAWRENCE Magallon, [facility] letter sent: BI-RADS 1/2 Dense Mammogram BI-RADS: 2 Benign 05/22/2017 - - Read by: Cinthia Katz MD Dictated Date/time: 05/23/17 10:06 Electronically Signed by: Cinthia Katz MD 05/23/17 10:06 FINAL REPORT [facility] Outpatient Imaging [facility] Bone Density DXA Dual Energy MA Bone Density DXA Dual Energy MA BONE DENSITY ASSESSMENT: 05/22/2017 CLINICAL DATA: Post menopausal. Z13.820-Screening for osteoporosis. Encounter For Screening For Osteoporosis/Z13.820 FINDINGS: Bone density evaluation was performed 05/22/2017 on the right femur neck using a Hologic unit. The BMD average for the exam is 0.630 g/cm2. The T-score is - 2.00 and the Z-score is -0.70. This matches the World Health Organization's criteria for osteopenia and places the patient at a medium risk for fracture. An additional bone density evaluation was performed 05/22/2017 on the left femur neck using a Hologic unit. The BMD average for the exam is 0.592 g/cm2. The T- score is -2.30 and the Z-score is -1.00. This matches the World Health Organization's criteria for osteopenia and places the patient at a medium risk for fracture. An additional bone density evaluation was performed 05/22/2017 on the right total femur area using a Hologic unit. The BMD average for the exam is 0.729 g/cm2. The T-score is -1.70 and the Z-score is -0.70. This matches the World Health Organization's criteria for osteopenia and places the patient at a medium risk for fracture. An additional bone density evaluation was performed 05/22/2017 on the left total femur area using a Hologic unit. The BMD average for the exam is 0.739 g/cm2. The T-score is -1.70 and the Z-score is -0.70. This matches the World Health Organization's criteria for osteopenia and places the patient at a medium risk for fracture. An additional bone density evaluation was performed 05/22/2017 on the AP L1-L4 region of spine using a Hologic unit. The BMD average for the exam is 0.810 g/cm2. The T-score is -2.20 and the Z-score is -0.60. This matches the World Health Organization's criteria for osteopenia and places the patient at a medium risk for fracture. IMPRESSION: OSTEOPENIA Patient is at medium risk for fracture. Patient consult w/primary care provider is recommended. This exam was interpreted at [id number] at [facility]. Cinthia santos/lizandro:05/23/2017 15:46:03 Disciplinary Hearing Officer(s): Angeles JONES)(Christian), [facility] 05/22/2017 - - Read by: Cinthia Katz MD Dictated Date/time: 05/23/17 15:46 Electronically Signed by: Cinthia Katz MD 05/23/17 15:46 FINAL REPORT [facility] Outpatient Imaging [facility] Abdomen/Pelvis wo IV contrast CT Abdomen/Pelvis wo IV contrast CT Clinical Indication: - r10.9 unspecified abdominal pain. Chronic constipation. Unexplained 20 pound weight loss x1 year. History of breast cancer in 1996. Comparison: CT abdomen 07/25/2012 TECHNIQUE: Helical imaging was performed diaphragm through the symphysis with multiplanar reformations obtained. IV CONTRAST: None GI CONTRAST: Positive oral contrast CT Radiation Dose: WPF=672 mGy-cm FINDINGS: LUNG BASES: The lung bases are clear. HEPATOBILIARY: The liver is normal. The gallbladder is surgically absent. SPLEEN: The spleen is normal in size. PANCREAS: The pancreas has a grossly normal noncontrast appearance. ADRENAL GLANDS: The adrenal glands are normal. KIDNEYS: No renal or ureteral calculus. No hydronephrosis. BOWEL: Positive oral contrast was administered. The stomach is unremarkable. The bowel is normal in caliber. The appendix is not seen. Moderate stool burden. Rounded nonaerated intraluminal contents at the level of the cecum at the ileocecal valve is favored to be related to normal enteric succus with internal attenuation of 23 Hounsfield units. Soft tissue lesion is felt less likely. RETROPERITONEUM/PERITONEUM: There is no free fluid. No free air. LYMPH NODES: No adenopathy. VASCULATURE: Atheromatous changes are present within the aorta without aneurysm. PELVIS: The urinary bladder has a normal appearance given its degree of distention. MUSCULOSKELETAL: The bones are demineralized. There are disc bulges at L4-L5 and L5-S1. IMPRESSION: 1. No acute intra-abdominal abnormality. 2. Postoperative changes 3. Moderate stool burden 4. Nonaerated structure within the cecum are felt to be related to nonaerated stool given similar appearance to small bowel contents. Soft tissue lesion felt less likely. SL: MAGGIE 05/22/2017 - - Read by: Kirstin Hernandez MD Dictated Date/time: 05/22/17 15:54 Electronically Signed by: Kirstin Hernandez MD 05/22/17 16:00 FINAL REPORT [facility] Outpatient Imaging [facility].gastrointestinal [Presence] in Stool fecal globin (medicare) by immunochemistry detected 03/28/2017 abnormal [facility] Bacteria identified in Urine by Culture culture, urine, routine see note 03/22/2017 [facility] Amylase [Enzymatic activity/volume] in Serum or Plasma amylase 53 U/L 21 - 101 03/21/2017 [facility] CBC W Auto Differential panel - Blood white blood cell count 7.6 thousand/uL 3.8 - 10.8 03/21/2017 [facility] CBC W Auto Differential panel - Blood red blood cell count 4.26 million/uL 3.80 - 5.10 03/21/2017 [facility] CBC W Auto Differential panel - Blood hemoglobin 12.3 g/dL 11.7 - 15.5 03/21/2017 [facility] CBC W Auto Differential panel - Blood hematocrit 37.0 % 35.0 - 45.0 03/21/2017 [facility] CBC W Auto Differential panel - Blood MCV 86.9 fL 80.0 - 100.0 03/21/2017 [facility] CBC W Auto Differential panel - Blood MCH 28.9 pg 27.0 - 33.0 03/21/2017 [facility] CBC W Auto Differential panel - Blood MCHC 33.2 g/dL 32.0 - 36.0 03/21/2017 [facility] CBC W Auto Differential panel - Blood RDW 12.3 % 11.0 - 15.0 03/21/2017 [facility] CBC W Auto Differential panel - Blood platelet count 221 thousand/uL 140 - 400 03/21/2017 [facility] CBC W Auto Differential panel - Blood MPV 12.6 fL 7.5 - 12.5 03/21/2017 [facility] CBC W Auto Differential panel - Blood absolute neutrophils 4507 cells/uL 1500 - 7800 03/21/2017 [facility] CBC W Auto Differential panel - Blood absolute lymphocytes 2310 cells/uL 850 - 3900 03/21/2017 [facility] CBC W Auto Differential panel - Blood absolute monocytes 684 cells/uL 200 - 950 03/21/2017 [facility] CBC W Auto Differential panel - Blood absolute eosinophils 38 cells/uL 15 - 500 03/21/2017 [facility] CBC W Auto Differential panel - Blood absolute basophils 61 cells/uL 0 - 200 03/21/2017 [facility] CBC W Auto Differential panel - Blood neutrophils 59.3 % 03/21/2017 [facility] CBC W Auto Differential panel - Blood lymphocytes 30.4 % 03/21/2017 [facility] CBC W Auto Differential panel - Blood monocytes 9.0 % 03/21/2017 [facility] CBC W Auto Differential panel - Blood eosinophils 0.5 % 03/21/2017 [facility] CBC W Auto Differential panel - Blood basophils 0.8 % 03/21/2017 [facility] Comprehensive metabolic 1999 panel - Serum or Plasma glucose 124 mg/dL 65 - 99 03/21/2017 [facility] Comprehensive metabolic 1999 panel - Serum or Plasma urea nitrogen (BUN) 13 mg/dL 7 - 25 03/21/2017 [facility] metabolic 1999 panel - Serum or Plasma creatinine 0.89 mg/dL 0.60 - 0.93 03/21/2017 [facility] Comprehensive metabolic 1999 panel - Serum or Plasma eGFR non-afr. cymro 65 mL/min/1.73m2 > or=60 03/21/2017 [facility] Comprehensive metabolic 1999 panel - Serum or Plasma eGFR 75 mL/min/1.73m2 > or=60 03/21/2017 [facility] Comprehensive metabolic 1999 panel - Serum or Plasma BUN/creatinine ratio not applicable 6 - 22 03/21/2017 [facility] Comprehensive metabolic 1999 panel - Serum or Plasma sodium 140 mmol/L 135 - 146 03/21/2017 [facility] Comprehensive metabolic 1999 panel - Serum or Plasma potassium 4.6 mmol/L 3.5 - 5.3 03/21/2017 [facility] Comprehensive metabolic 1999 panel - Serum or Plasma chloride 103 mmol/L 98 - 110 03/21/2017 [facility] Comprehensive metabolic 1999 panel - Serum or Plasma carbon dioxide 28 mmol/L 20 - 31 03/21/2017 [facility] Comprehensive metabolic 1999 panel - Serum or Plasma calcium 10.1 mg/dL 8.6 - 10.4 03/21/2017 [facility] Comprehensive metabolic 1999 panel - Serum or Plasma protein, total 7.6 g/dL 6.1 - 8.1 03/21/2017 [facility] Comprehensive metabolic 1999 panel - Serum or Plasma albumin 4.1 g/dL 3.6 - 5.1 03/21/2017 [facility] Comprehensive metabolic 1999 panel - Serum or Plasma globulin 3.5 g/dL_(calc) 1.9 - 3.7 03/21/2017 [facility] Comprehensive metabolic 1999 panel - Serum or Plasma albumin/globulin ratio 1.2 (calc) 1.0 - 2.5 03/21/2017 [facility] metabolic 1999 panel - Serum or Plasma bilirubin, total 1.0 mg/dL 0.2 - 1.2 03/21/2017 [facility] Comprehensive metabolic 1999 panel - Serum or Plasma alkaline phosphatase 110 U/L 33 - 130 03/21/2017 [facility] Comprehensive metabolic 1999 panel - Serum or Plasma AST 17 U/L 10 - 35 03/21/2017 [facility] Comprehensive metabolic 1999 panel - Serum or Plasma ALT 13 U/L 6 - 29 03/21/2017 [facility] Erythrocyte sedimentation rate by Westergren method sed rate by modified westergren 28 mm/h < or=30 03/21/2017 [facility] Hemoglobin A1c/Hemoglobin.total in Blood hemoglobin A1C 10.5 %_of_total_HGB <5.7 03/21/2017 [facility] Hemoglobin A1c/Hemoglobin.total in Blood EAG (mg/dL) 255 (calc) 03/21/2017 [facility] Hemoglobin A1c/Hemoglobin.total in Blood EAG (mmol/L) 14.1 (calc) 03/21/2017 [facility] Lipase [Enzymatic activity/volume] in Serum or Plasma lipase 15 U/L 7 - 60 03/21/2017 [facility] Prealbumin [Mass/volume] in Serum or Plasma prealbumin 23 mg/dL 17 - 34 12/19/2016 [facility] Comprehensive metabolic 1999 panel - Serum or Plasma ALT 21 U/L 0 - 55 12/19/2016 [facility] Comprehensive metabolic 1999 panel - Serum or Plasma AST 24 U/L 5 - 34 12/19/2016 [facility] Comprehensive metabolic 1999 panel - Serum or Plasma BUN 11.6 mg/dL 9.8 - 20.1 12/19/2016 [facility] Comprehensive metabolic 1999 panel - Serum or Plasma alk phos 158 unit/L 40 - 150 12/19/2016 [facility] Comprehensive metabolic 1999 panel - Serum or Plasma glucose 84 mg/dL 70 - 99 12/19/2016 [facility] Comprehensive metabolic 1999 panel - Serum or Plasma albumin 3.8 g/dL 3.5 - 5.0 12/19/2016 [facility] Comprehensive metabolic 1999 panel - Serum or Plasma creatinine 0.85 mg/dL 0.57 - 1.11 12/19/2016 [facility] Comprehensive metabolic 1999 panel - Serum or Plasma eGFR non- >60 >60 12/19/2016 [facility] Comprehensive metabolic 1999 panel - Serum or Plasma total bilirubin 0.8 mg/dL 0.2 - 1.2 12/19/2016 [facility] Comprehensive metabolic 1999 panel - Serum or Plasma eGFR - >60 >60 12/19/2016 [facility] Comprehensive metabolic 1999 panel - Serum or Plasma sodium 149 mEq/L 136 - 145 12/19/2016 [facility] metabolic 1999 panel - Serum or Plasma potassium 5.3 mEq/L 3.5 - 5.1 12/19/2016 [facility] metabolic 1999 panel - Serum or Plasma chloride 108 mmol/L 98 - 107 12/19/2016 [facility] metabolic 1999 panel - Serum or Plasma total protein 8.2 g/dL 6.4 - 8.3 12/19/2016 [facility] Comprehensive metabolic 1999 panel - Serum or Plasma calcium 10.5 mg/dL 8.4 - 10.2 12/19/2016 [facility] metabolic 1999 panel - Serum or Plasma CO2 30.6 mmol/L 23.0 - 31.0 12/19/2016 [facility] Comprehensive metabolic 1999 panel - Serum or Plasma anion gap 10 calc 12/19/2016 [facility] Lipid 1995 panel - Serum or Plasma HDL 57 mg/dL 40 - 60 12/19/2016 [facility] Lipid 1995 panel - Serum or Plasma triglyceride 52 mg/dL 0 - 149 12/19/2016 [facility] Lipid 1995 panel - Serum or Plasma VLDL calc. 10 mg/dL 12/19/2016 [facility] Lipid 1995 panel - Serum or Plasma cholesterol/HDL ratio 3 mg/dL 12/19/2016 [facility] Lipid 1995 panel - Serum or Plasma non-HDL cholesterol calc. 97 mg/dL 0 - 160 12/19/2016 [facility] Lipid 1995 panel - Serum or Plasma cholesterol 154 mg/dL 0 - 199 12/19/2016 [facility] Lipid 1995 panel - Serum or Plasma LDL calc. 87 mg/dL 0 - 130 12/19/2016 [facility] Thyrotropin [Units/volume] in Serum or Plasma TSH 1.054 uIU/mL 0.350 - 4.940 12/19/2016 [facility] Thyroxine (T4) [Mass/volume] in Serum or Plasma T4 total 7.77 ug/dL 4.87 - 11.72 12/19/2016 [facility] Hemoglobin A1c/Hemoglobin.total in Blood A1C w/EAG 10.4 % 1.0 - 5.7 12/18/2016 [facility] Hemoglobin A1c/Hemoglobin.total in Blood average blood glucose 252 mg/dL 12/18/2016 [facility] CBC W Auto Differential panel - Blood WBC 6.13 x10*3/L 3.98 - 10.04 12/18/2016 [facility] CBC W Auto Differential panel - Blood RBC 4.43 10*12/L 3.93 - 5.22 12/18/2016 [facility] CBC W Auto Differential panel - Blood hemoglobin 12.80 g/dL 11.20 - 15.70 12/18/2016 [facility] CBC W Auto Differential panel - Blood hematocrit 39.9 % 34.1 - 44.9 12/18/2016 [facility] CBC W Auto Differential panel - Blood MCV 90.1 fL 80.0 - 100.0 12/18/2016 [facility] CBC W Auto Differential panel - Blood MCH 28.9 pg 25.6 - 32.2 12/18/2016 [facility] CBC W Auto Differential panel - Blood MCHC 32.1 g/dL 32.2 - 35.5 12/18/2016 low [facility] CBC W Auto Differential panel - Blood RDW-SD 42.8 fL 36.4 - 46.3 12/18/2016 [facility] CBC W Auto Differential panel - Blood platelet count 197.0 k/uL 182.0 - 369.0 12/18/2016 [facility] CBC W Auto Differential panel - Blood MPV 12.8 fL 7.5 - 11.5 12/18/2016 high [facility] CBC W Auto Differential panel - Blood neut% 55.0 % 34.0 - 71.1 12/18/2016 [facility] CBC W Auto Differential panel - Blood lymph% 31.6 % 19.3 - 51.7 12/18/2016 [facility] CBC W Auto Differential panel - Blood mon% 10.0 % 4.7 - 12.5 12/18/2016 [facility] CBC W Auto Differential panel - Blood eos% 2.9 % 0.7 - 5.8 12/18/2016 [facility] CBC W Auto Differential panel - Blood baso% 0.5 % 0.1 - 1.2 12/18/2016 [facility] CBC W Auto Differential panel - Blood neut# 3.4 x10*3/L 1.6 - 6.1 12/18/2016 [facility] CBC W Auto Differential panel - Blood lymph# 1.9 x10*3/L 1.2 - 3.7 12/18/2016 [facility] CBC W Auto Differential panel - Blood mon# 0.6 x10*3/L 0.2 - 0.9 12/18/2016 [facility] CBC W Auto Differential panel - Blood eos# 0.18 x10*3/L 0.04 - 0.36 12/18/2016 [facility] CBC W Auto Differential panel - Blood baso# 0.03 x10*3/L 0.01 - 0.08 12/18/2016 [facility] Comprehensive metabolic 1999 panel - Serum or Plasma glucose 361 mg/dL 65 - 99 09/11/2016 [facility] Comprehensive metabolic 1999 panel - Serum or Plasma urea nitrogen (BUN) 11 mg/dL 7 - 25 09/11/2016 [facility] Comprehensive metabolic 1999 panel - Serum or Plasma creatinine 1.07 mg/dL 0.60 - 0.93 09/11/2016 [facility] Comprehensive metabolic 1999 panel - Serum or Plasma eGFR non-afr. cymro 52 mL/min/1.73m2 > or=60 09/11/2016 [facility] Comprehensive metabolic 1999 panel - Serum or Plasma eGFR 60 mL/min/1.73m2 > or=60 09/11/2016 [facility] Comprehensive metabolic 1999 panel - Serum or Plasma BUN/creatinine ratio 10 (calc) 6 - 22 09/11/2016 [facility] Comprehensive metabolic 1999 panel - Serum or Plasma sodium 135 mmol/L 135 - 146 09/11/2016 [facility] Comprehensive metabolic 1999 panel - Serum or Plasma potassium 4.3 mmol/L 3.5 - 5.3 09/11/2016 [facility] Comprehensive metabolic 1999 panel - Serum or Plasma chloride 99 mmol/L 98 - 110 09/11/2016 [facility] Comprehensive metabolic 1999 panel - Serum or Plasma carbon dioxide 26 mmol/L 20 - 31 09/11/2016 [facility] Comprehensive metabolic 1999 panel - Serum or Plasma calcium 9.7 mg/dL 8.6 - 10.4 09/11/2016 [facility] Comprehensive metabolic 1999 panel - Serum or Plasma protein, total 7.4 g/dL 6.1 - 8.1 09/11/2016 [facility] Comprehensive metabolic 1999 panel - Serum or Plasma albumin 3.8 g/dL 3.6 - 5.1 09/11/2016 [facility] Comprehensive metabolic 1999 panel - Serum or Plasma globulin 3.6 g/dL_(calc) 1.9 - 3.7 09/11/2016 [facility] metabolic 1999 panel - Serum or Plasma albumin/globulin ratio 1.1 (calc) 1.0 - 2.5 09/11/2016 [facility] metabolic 1999 panel - Serum or Plasma bilirubin, total 0.6 mg/dL 0.2 - 1.2 09/11/2016 [facility] metabolic 1999 panel - Serum or Plasma alkaline phosphatase 145 U/L 33 - 130 09/11/2016 [facility] metabolic 1999 panel - Serum or Plasma AST 19 U/L 10 - 35 09/11/2016 [facility] metabolic 1999 panel - Serum or Plasma ALT 13 U/L 6 - 29 09/11/2016 [facility] Hemoglobin A1c/Hemoglobin.total in Blood hemoglobin A1C 11.3 %_of_total_HGB <5.7 09/11/2016 [facility] Hemoglobin A1c/Hemoglobin.total in Blood EAG (mg/dL) 278 (calc) 09/11/2016 [facility] Hemoglobin A1c/Hemoglobin.total in Blood EAG (mmol/L) 15.4 (calc) 09/11/2016 [facility] Lipid 1995 panel - Serum or Plasma cholesterol, total 137 mg/dL 125 - 200 09/11/2016 [facility] Lipid 1995 panel - Serum or Plasma HDL cholesterol 60 mg/dL > or=46 09/11/2016 [facility] Lipid 1995 panel - Serum or Plasma triglycerides 80 mg/dL <150 09/11/2016 [facility] Lipid 1995 panel - Serum or Plasma LDL-cholesterol 61 mg/dL_(calc) <130 09/11/2016 [facility] Lipid 1995 panel - Serum or Plasma chol/HDLC ratio 2.3 (calc) < or=5.0 09/11/2016 [facility] Lipid 1995 panel - Serum or Plasma non HDL cholesterol 77 mg/dL_(calc) 09/11/2016 [facility] CBC W Auto Differential panel - Blood Leukocytes [#/volume] in Blood by Automated count 6.0 thousand/uL 3.8 - 10.8 06/13/2016 [facility] CBC W Auto Differential panel - Blood Erythrocytes [#/volume] in Blood by Automated count 4.30 million/uL 3.80 - 5.10 06/13/2016 [facility] CBC W Auto Differential panel - Blood Hemoglobin [Mass/volume] in Blood 12.4 g/dL 11.7 - 15.5 06/13/2016 [facility] CBC W Auto Differential panel - Blood Hematocrit [Volume Fraction] of Blood by Automated count 37.7 % 35.0 - 45.0 06/13/2016 [facility] CBC W Auto Differential panel - Blood Erythrocyte mean corpuscular volume [Entitic volume] by Automated count 87.6 fL 80.0 - 100.0 06/13/2016 [facility] CBC W Auto Differential panel - Blood Erythrocyte mean corpuscular hemoglobin [Entitic mass] by Automated count 28.7 pg 27.0 - 33.0 06/13/2016 [facility] CBC W Auto Differential panel - Blood Erythrocyte mean corpuscular hemoglobin concentration [Mass/volume] by Automated count 32.8 g/dL 32.0 - 36.0 06/13/2016 [facility] CBC W Auto Differential panel - Blood Erythrocyte distribution width [Ratio] by Automated count 14.0 % 11.0 - 15.0 06/13/2016 [facility] CBC W Auto Differential panel - Blood Platelets [#/volume] in Blood by Automated count 191 thousand/uL 140 - 400 06/13/2016 [facility] CBC W Auto Differential panel - Blood Platelet mean volume [Entitic volume] in Blood by Sally 11.0 fL 7.5 - 12.5 06/13/2016 [facility] CBC W Auto Differential panel - Blood Neutrophils [#/volume] in Blood by Automated count 3792 cells/uL 1500 - 7800 06/13/2016 [facility] CBC W Auto Differential panel - Blood Lymphocytes [#/volume] in Blood by Automated count 1728 cells/uL 850 - 3900 06/13/2016 [facility] CBC W Auto Differential panel - Blood Monocytes [#/volume] in Blood by Automated count 360 cells/uL 200 - 950 06/13/2016 [facility] CBC W Auto Differential panel - Blood Eosinophils [#/volume] in Blood by Automated count 78 cells/uL 15 - 500 06/13/2016 [facility] CBC W Auto Differential panel - Blood Basophils [#/volume] in Blood by Automated count 42 cells/uL 0 - 200 06/13/2016 [facility] CBC W Auto Differential panel - Blood Neutrophils/100 leukocytes in Blood by Automated count 63.2 % 06/13/2016 [facility] CBC W Auto Differential panel - Blood Lymphocytes/100 leukocytes in Blood by Automated count 28.8 % 06/13/2016 [facility] CBC W Auto Differential panel - Blood Monocytes/100 leukocytes in Blood by Automated count 6.0 % 06/13/2016 [facility] CBC W Auto Differential panel - Blood Eosinophils/100 leukocytes in Blood by Automated count 1.3 % 06/13/2016 [facility] CBC W Auto Differential panel - Blood Basophils/100 leukocytes in Blood by Automated count 0.7 % 06/13/2016 [facility] Comprehensive metabolic 1999 panel - Serum or Plasma Glucose [Mass/volume] in Serum or Plasma 186 mg/dL 65 - 99 06/13/2016 [facility] Comprehensive metabolic 1999 panel - Serum or Plasma Urea nitrogen [Mass/volume] in Serum or Plasma 8 mg/dL 7 - 25 06/13/2016 [facility] Comprehensive metabolic 1999 panel - Serum or Plasma Creatinine [Mass/volume] in Serum or Plasma 0.83 mg/dL 0.60 - 0.93 06/13/2016 [facility] Comprehensive metabolic 1999 panel - Serum or Plasma Glomerular filtration rate/1.73 sq M.predicted by Creatinine-based formula (MDRD) 70 mL/min/1.73m2 > or=60 06/13/2016 [facility] Comprehensive metabolic 1999 panel - Serum or Plasma Glomerular filtration rate/1.73 sq M predicted among blacks by Creatinine-based formula (MDRD) 82 mL/min/1.73m2 > or=60 06/13/2016 [facility] metabolic 1999 panel - Serum or Plasma Urea nitrogen/Creatinine [Mass Ratio] in Serum or Plasma not applicable 6 - 22 06/13/2016 [facility] Comprehensive metabolic 1999 panel - Serum or Plasma Sodium [Moles/volume] in Serum or Plasma 140 mmol/L 135 - 146 06/13/2016 [facility] Comprehensive metabolic 1999 panel - Serum or Plasma Potassium [Moles/volume] in Serum or Plasma 4.0 mmol/L 3.5 - 5.3 06/13/2016 [facility] Comprehensive metabolic 1999 panel - Serum or Plasma Chloride [Moles/volume] in Serum or Plasma 104 mmol/L 98 - 110 06/13/2016 [facility] Comprehensive metabolic 1999 panel - Serum or Plasma Carbon dioxide, total [Moles/volume] in Serum or Plasma 29 mmol/L 20 - 31 06/13/2016 [facility] Comprehensive metabolic 1999 panel - Serum or Plasma Calcium [Mass/volume] in Serum or Plasma 9.4 mg/dL 8.6 - 10.4 06/13/2016 [facility] Comprehensive metabolic 1999 panel - Serum or Plasma Protein [Mass/volume] in Serum or Plasma 7.5 g/dL 6.1 - 8.1 06/13/2016 [facility] Comprehensive metabolic 1999 panel - Serum or Plasma Albumin [Mass/volume] in Serum or Plasma 4.1 g/dL 3.6 - 5.1 06/13/2016 [facility] Comprehensive metabolic 1999 panel - Serum or Plasma Globulin [Mass/volume] in Serum by calculation 3.4 g/dL_(calc) 1.9 - 3.7 06/13/2016 [facility] metabolic 1999 panel - Serum or Plasma Albumin/Globulin [Mass Ratio] in Serum or Plasma 1.2 (calc) 1.0 - 2.5 06/13/2016 [facility] metabolic 1999 panel - Serum or Plasma Bilirubin.total [Mass/volume] in Serum or Plasma 0.6 mg/dL 0.2 - 1.2 06/13/2016 [facility] metabolic 1999 panel - Serum or Plasma Alkaline phosphatase [Enzymatic activity/volume] in Serum or Plasma 138 U/L 33 - 130 06/13/2016 [facility] metabolic 1999 panel - Serum or Plasma Aspartate aminotransferase [Enzymatic activity/volume] in Serum or Plasma 17 U/L 10 - 35 06/13/2016 [facility] metabolic 1999 panel - Serum or Plasma Alanine aminotransferase [Enzymatic activity/volume] in Serum or Plasma 15 U/L 6 - 29 06/13/2016 [facility] Hemoglobin A1c/Hemoglobin.total in Blood Hemoglobin A1c/Hemoglobin.total in Blood 10.5 %_of_total_HGB <5.7 06/13/2016 [facility] Lipid 1995 panel - Serum or Plasma Cholesterol [Mass/volume] in Serum or Plasma 146 mg/dL 125 - 200 06/13/2016 [facility] Lipid 1995 panel - Serum or Plasma Cholesterol in HDL [Mass/volume] in Serum or Plasma 64 mg/dL > or=46 06/13/2016 [facility] Lipid 1995 panel - Serum or Plasma Triglyceride [Mass/volume] in Serum or Plasma 74 mg/dL <150 06/13/2016 [facility] Lipid 1995 panel - Serum or Plasma Cholesterol in LDL [Mass/volume] in Serum or Plasma by calculation 67 mg/dL_(calc) <130 06/13/2016 [facility] Lipid [facility] panel - Serum or Plasma Cholesterol.total/Cholesterol.in HDL [Mass ratio] in Serum or Plasma 2.3 (calc) < or=5.0 06/13/2016 [facility] Lipid 1995 panel - Serum or Plasma Cholesterol non HDL [Mass/volume] in Serum or Plasma 82 mg/dL_(calc) 06/13/2016 [facility] CHEM PANEL Calcium Lvl 8.5 mg/dL 8.5 - 10.5 08/05/2015 [facility] CHEM PANEL AGAP 11.2 meq/L 10.0 - 20.0 08/05/2015 [facility] CHEM PANEL eGFR 81 mL/min/1.73m2 08/05/2015 Result Comment: The eGFR is calculated using the [...] from the National Kidney Disease Education Program (NKDEP) which additionally recommends that when the eGFR is used in patients with extremes of body mass index for purposes of drug dosing, the eGFR should be multiplied by the estimated BMI. [facility] CHEM PANEL Glucose Lvl 142 mg/dL 70 - 99 08/05/2015 [facility] CHEM PANEL BUN 11 mg/dL 7 - 22 08/05/2015 [facility] CHEM PANEL Sodium Lvl 140 meq/L 135 - 145 08/05/2015 [facility] CHEM PANEL Potassium Lvl 4.2 meq/L 3.5 - 5.1 08/05/2015 [facility] CHEM PANEL Creatinine Lvl 0.84 mg/dL 0.50 - 1.40 08/05/2015 [facility] CHEM PANEL Chloride Lvl 107 meq/L 95 - 109 08/05/2015 [facility] CHEM PANEL CO2 26 meq/L 24 - 32 08/05/2015 [facility] HEMATOLOGY MPV 10.3 fL 7.4 - 10.4 08/05/2015 [facility] HEMATOLOGY Platelet 127 K/CMM 133 - 450 08/05/2015 [facility] HEMATOLOGY Hct 38.8 % 36.0 - 48.0 08/05/2015 [facility] HEMATOLOGY RBC 4.42 M/CMM 4.20 - 5.40 08/05/2015 [facility] HEMATOLOGY Hgb 12.1 g/dL 12.0 - 16.0 08/05/2015 [facility] HEMATOLOGY WBC 5.7 K/CMM 3.7 - 10.4 08/05/2015 [facility] HEMATOLOGY RDW 12.6 % 11.5 - 14.5 08/05/2015 [facility] HEMATOLOGY MCHC 31.2 g/dL 32.0 - 36.0 08/05/2015 [facility] MCH 27.4 pg 27.0 - 31.0 08/05/2015 [facility] HEMATOLOGY MCV 87.8 fL 80.0 - 98.0 08/05/2015 [facility] HEMATOLOGY Segs-Bands # 3.5 K/CMM 1.5 - 8.1 08/05/2015 [facility] HEMATOLOGY Basophils 0.9 % 0.0 - 1.0 08/05/2015 [facility] HEMATOLOGY Eosinophils 0.3 % 0.0 - 4.0 08/05/2015 [facility] HEMATOLOGY Basophils # 0.1 K/CMM 0.0 - 0.2 08/05/2015 [facility] HEMATOLOGY Monocytes # 0.5 K/CMM 0.0 - 0.8 08/05/2015 [facility] HEMATOLOGY Lymphocytes # 1.6 K/CMM 1.0 - 5.5 08/05/2015 [facility] HEMATOLOGY Monocytes 8.2 % 2.0 - 12.0 08/05/2015 [facility] HEMATOLOGY Lymphocytes 28.4 % 20.0 - 40.0 08/05/2015 [facility] HEMATOLOGY Segs 62.2 % 45.0 - 75.0 08/05/2015 [facility] CARDIAC ENZYMES Troponin-I 0.26 ng/mL 0.00 - 0.40 08/04/2015 [facility] CHEM PANEL Lactic Acid Lvl 1.6 mMol/L 0.5 - 2.2 08/04/2015 [facility] CHEM PANEL Globulin 4.3 g/dL 2.0 - 4.0 08/04/2015 [facility] CHEM PANEL A/G Ratio 0.8 0.7 - 1.6 08/04/2015 [facility] CHEM PANEL B/C Ratio 11 6 - 25 08/04/2015 [facility] CHEM PANEL AGAP 12.1 meq/L 10.0 - 20.0 08/04/2015 [facility] CHEM PANEL eGFR 63 mL/min/1.73m2 08/04/2015 Result Comment: The eGFR is calculated using the [...] from the National Kidney Disease Education Program (NKDEP) which additionally recommends that when the eGFR is used in patients with extremes of body mass index for purposes of drug dosing, the eGFR should be multiplied by the estimated BMI. [facility] CHEM PANEL CO2 25 meq/L 24 - 32 08/04/2015 [facility] CHEM PANEL Calcium Lvl 8.8 mg/dL 8.5 - 10.5 08/04/2015 [facility] CHEM PANEL Chloride Lvl 101 meq/L 95 - 109 08/04/2015 [facility] CHEM PANEL AST 28 unit/L 0 - 37 08/04/2015 [facility] CHEM PANEL Bili Total 0.8 mg/dL 0.2 - 1.3 08/04/2015 [facility] CHEM PANEL Total Protein 7.9 g/dL 6.4 - 8.4 08/04/2015 [facility] CHEM PANEL Sodium Lvl 135 meq/L 135 - 145 08/04/2015 [facility] CHEM PANEL Potassium Lvl 3.1 meq/L 3.5 - 5.1 08/04/2015 [facility] CHEM PANEL BUN 11 mg/dL 7 - 22 08/04/2015 [facility] CHEM PANEL Creatinine Lvl 1.03 mg/dL 0.50 - 1.40 08/04/2015 [facility] CHEM PANEL Albumin Lvl 3.6 g/dL 3.5 - 5.0 08/04/2015 [facility] CHEM PANEL Glucose Lvl 217 mg/dL 70 - 99 08/04/2015 [facility] CHEM PANEL Alk Phos 107 unit/L 39 - 136 08/04/2015 [facility] CHEM PANEL ALT 30 unit/L 0 - 65 08/04/2015 [facility] HEMATOLOGY Segs 70.1 % 45.0 - 75.0 08/04/2015 [facility] Lymphocytes 17.9 % 20.0 - 40.0 08/04/2015 [facility] Monocytes # 0.8 K/CMM 0.0 - 0.8 08/04/2015 [facility] HEMATOLOGY Monocytes 11.6 % 2.0 - 12.0 08/04/2015 [facility] HEMATOLOGY Eosinophils 0.1 % 0.0 - 4.0 08/04/2015 [facility] HEMATOLOGY Basophils 0.3 % 0.0 - 1.0 08/04/2015 [facility] Lymphocytes # 1.2 K/CMM 1.0 - 5.5 08/04/2015 [facility] Segs-Bands # 4.5 K/CMM 1.5 - 8.1 08/04/2015 [facility] MPV 10.2 fL 7.4 - 10.4 08/04/2015 [facility] RDW 12.3 % 11.5 - 14.5 08/04/2015 [facility] Platelet 138 K/CMM 133 - 450 08/04/2015 [facility] MCV 85.7 fL 80.0 - 98.0 08/04/2015 [facility] MCHC 32.8 g/dL 32.0 - 36.0 08/04/2015 [facility] MCH 28.1 pg 27.0 - 31.0 08/04/2015 [facility] Hgb 12.4 g/dL 12.0 - 16.0 08/04/2015 [facility] RBC 4.41 M/CMM 4.20 - 5.40 08/04/2015 [facility] WBC 6.5 K/CMM 3.7 - 10.4 08/04/2015 [facility] Hct 37.8 % 36.0 - 48.0 08/04/2015 [facility] RAPID Grp A Strep Scr Negative (08/03/15 8:08 PM) Negative 08/04/2015 [facility] VIRAL - SEROLOGY Influ A Negative (08/03/15 8:08 PM) Negative 08/04/2015 [facility] VIRAL - SEROLOGY Influ B Positive 1 *ABN* (08/03/15 8:08 PM) Negative 08/04/2015 Result Comment: "Significant Findings called to DR Ty at 08/03/2015 20:43 by [email or web address].Read Back OK." [facility] Chest 2 views DX Chest 2 views DX Clinical Indication: Chest pain. Comparison: Chest radiograph 07/25/2012 Findings: Frontal and lateral views of the chest was obtained. Post op sternotomy. Surgical clips project over the right axilla and gallbladder fossa. The cardiac silhouette is normal. Atheromatous changes are present in the aorta. There is at least one coronary artery stent. There is no lobar consolidation, effusion, edema. No pneumothorax. There is scarring at the left lung apex. No acute osseous abnormality. There are postsurgical changes of right mastectomy. Nipple shadow projects over the left lung base. IMPRESSION: No acute cardiopulmonary abnormality. SL: [id number] 08/03/2015 - - Read by: Kirstin Hernandez MD Dictated Date/time: 08/03/15 21:03 Electronically Signed by: Kirstin Hernandez MD 08/03/15 21:07 FINAL REPORT [facility] Vital Signs Vital Sign Value Date Comments Source Diastolic (mm Hg) 66 08/02/2017 [facility] Height 64 08/02/2017 [facility] Systolic (mm Hg) 132 08/02/2017 [facility] Weight 121.4 08/02/2017 [facility] Heart Rate 62 07/03/2017 [facility] Systolic (mm Hg) 147 07/03/2017 [facility] Diastolic (mm Hg) 67 07/03/2017 [facility] Respitory Rate 18 07/03/2017 [facility] BMI Calculated 20.47 07/02/2017 [facility] Weight 54.091 07/02/2017 [facility] Height 162.56 cm 07/02/2017 [facility] Heart Rate 60 07/02/2017 [facility] Respitory Rate 18 07/02/2017 [facility] Temperature Oral (F) 97.9 F 07/02/2017 [facility] Systolic (mm Hg) 150 07/02/2017 [facility] Diastolic (mm Hg) 72 07/02/2017 [facility] Diastolic (mm Hg) 60 06/20/2017 [facility] Height 64 06/20/2017 [facility] Systolic (mm Hg) 114 06/20/2017 [facility] Weight 121 06/20/2017 [facility] Diastolic (mm Hg) 68 03/20/2017 [facility] Height 64 03/20/2017 [facility] Systolic (mm Hg) 117 03/20/2017 [facility] Weight 121.6 03/20/2017 [facility] Diastolic (mm Hg) 73 12/18/2016 [facility] Height 64 12/18/2016 [facility] Systolic (mm Hg) 139 12/18/2016 [facility] Weight 120 12/18/2016 [facility] Diastolic (mm Hg) 77 09/17/2016 [facility] Height 64 09/17/2016 [facility] Systolic (mm Hg) 145 09/17/2016 [facility] Weight 119.6 09/17/2016 [facility] Diastolic (mm Hg) 60 09/10/2016 [facility] Height 64 09/10/2016 [facility] Systolic (mm Hg) 90 09/10/2016 [facility] Weight 117 09/10/2016 [facility] Diastolic (mm Hg) 74 06/11/2016 [facility] Height 64 06/11/2016 [facility] Systolic (mm Hg) 138 06/11/2016 [facility] Weight 119.6 06/11/2016 [facility] Diastolic (mm Hg) 74 05/04/2016 [facility] Height 64 05/04/2016 [facility] Systolic (mm Hg) 137 05/04/2016 [facility] Weight 117.8 05/04/2016 [facility] Diastolic (mm Hg) 66 03/07/2016 [facility] Height 64 03/07/2016 [facility] Systolic (mm Hg) 118 03/07/2016 [facility] Weight 113.4 03/07/2016 [facility] Diastolic (mm Hg) 69 02/17/2016 [facility] Height 64 02/17/2016 [facility] Systolic (mm Hg) 120 02/17/2016 [facility] Weight 114.2 02/17/2016 [facility] Diastolic (mm Hg) 78 01/31/2016 [facility] Height 64 01/31/2016 [facility] Systolic (mm Hg) 117 01/31/2016 [facility] Weight 111.8 01/31/2016 [facility] Temperature Oral (F) 97.7 F 12/12/2015 [facility] Systolic (mm Hg) 145 12/12/2015 [facility] Diastolic (mm Hg) 68 12/12/2015 [facility] Respitory Rate 18 12/12/2015 [facility] Heart Rate 64 12/12/2015 [facility] BMI Calculated 19.44 12/12/2015 [facility] Weight 51.364 12/12/2015 [facility] Respitory Rate 16 12/12/2015 [facility] Systolic (mm Hg) 141 12/12/2015 [facility] Diastolic (mm Hg) 63 12/12/2015 [facility] Heart Rate 64 12/12/2015 [facility] Temperature Oral (F) 98.0 F 12/12/2015 [facility] Height 162.56 cm 12/12/2015 [facility] Diastolic (mm Hg) 66 10/11/2015 [facility] Height 64 10/11/2015 [facility] Systolic (mm Hg) 112 10/11/2015 [facility] Weight 113 10/11/2015 [facility] Diastolic (mm Hg) 64 09/27/2015 [facility] Height 64 09/27/2015 [facility] Systolic (mm Hg) 119 09/27/2015 [facility] Weight 112.8 09/27/2015 [facility] Diastolic (mm Hg) 64 08/31/2015 [facility] Height 64 08/31/2015 [facility] Systolic (mm Hg) 111 08/31/2015 [facility] Weight 111.6 08/31/2015 [facility] Diastolic (mm Hg) 76 08/19/2015 [facility] Height 64 08/19/2015 [facility] Systolic (mm Hg) 110 08/19/2015 [facility] Weight 111.8 08/19/2015 [facility] Respitory Rate 16 08/05/2015 [facility] Systolic (mm Hg) 171 08/05/2015 [facility] Diastolic (mm Hg) 77 08/05/2015 [facility] Heart Rate 69 08/05/2015 [facility] Temperature Oral (F) 98.1 F 08/05/2015 [facility] Weight 50.455 08/04/2015 [facility] BMI Calculated 19.09 08/04/2015 [facility] Heart Rate 78 08/04/2015 [facility] Temperature Oral (F) 98.7 F 08/04/2015 [facility] Respitory Rate 18 08/04/2015 [facility] Height 162.56 cm 08/04/2015 [facility] Systolic (mm Hg) 159 08/04/2015 [facility] Diastolic (mm Hg) 72 08/04/2015 [facility] Systolic (mm Hg) 148 08/04/2015 [facility] Diastolic (mm Hg) 62 08/04/2015 [facility] Temperature Oral (F) 100.2 F 08/04/2015 [facility] Respitory Rate 20 08/04/2015 [facility] Heart Rate 86 08/04/2015 [facility] Weight 50.114 08/03/2015 [facility] BMI Calculated 18.96 08/03/2015 [facility] Height 162.56 cm 08/03/2015 [facility] Temperature Oral (F) 101.4 F 08/03/2015 [facility] Systolic (mm Hg) 157 08/03/2015 [facility] Diastolic (mm Hg) 70 08/03/2015 [facility] Respitory Rate 20 08/03/2015 [facility] Heart Rate 92 08/03/2015 [facility] Diastolic (mm Hg) 65 07/19/2015 [facility] Height 64 07/19/2015 [facility] Systolic (mm Hg) 114 07/19/2015 [facility] Weight 111.4 07/19/2015 [facility] Diastolic (mm Hg) 58 05/20/2015 [facility] Height 64 05/20/2015 [facility] Systolic (mm Hg) 122 05/20/2015 [facility] Weight 113 05/20/2015 [facility] Diastolic (mm Hg) 54 05/13/2015 [facility] Height 64 05/13/2015 [facility] Systolic (mm Hg) 112 05/13/2015 [facility] Weight 110.8 05/13/2015 [facility] Encounters Location Location Details Encounter Type Encounter Number Reason For Visit Attending Provider ADM Date DC Date Status Source [facility] ANUM [id number] NNAMDI HANKINS 06/03/2012 06/04/2012 Active [facility] OD [id number] V76.11 - SCREEN MAMMOGRGet CHUNBeverly LOPEZ 07/02/2012 Active FEDERICO Woods MD [facility] [id number] David Ty 08/03/2015 08/04/2015 [facility] [id number] David Melony 08/04/2015 08/05/2015 [facility] [id number] Minesh Snu Jr 12/12/2015 12/12/2015 [facility] [place] [facility] Juliette Soto Y[place] WINDER: [id number], [address], [place] [address], Ph. [id number] Juliette Soto 01/31/2016 [facility] Juliette Charles, [employer]: [address], [address] [id number], Ph. [id number] Juliette Soto 02/17/2016 [facility] Krish Barnes MD: [id number], [address] [address], Ph. [id number] Krish Barnes 03/07/2016 [facility] Juliette Soto, [employer] [place]ER: [address], [address] [address], Ph. [id number] Juliette Soto 05/04/2016 [facility] Krish Barnes MD: [address], [address] [address], Ph. [id number] Krish Barnes 06/11/2016 [facility] SUJATHA Mariscal: [address], [address] [address], Ph. [id number] Shelbie Moreno 09/10/2016 [facility] Krish Barnes MD: [address], [address] [address], Ph. [id number] Krish Barnes 09/17/2016 [facility] Krish Barnes MD: [address], [address], [place] [address], Ph. [id number] Krish Barnes 12/18/2016 [facility] Krish Barnes MD: [address], [address], [place] [address], Ph. [id number] Krish Barnes 03/20/2017 [facility] Juliette Soto [employer]: [address], [address], [place] [address], Ph. [id number] Juliette Soto 06/20/2017 [facility] Emergency [id number] Celine Florentino 07/02/2017 07/03/2017 [facility] Melissa Bedoya PA: [address], [address], [place] [address], Ph. [id number] Melissa Bedoya 08/02/2017 [facility] Procedures Procedure Code Date Perfomer Comments Source CT, abdomen + pelvis, w/o contrast 03/31/2017 [facility] bone density 03/20/2017 [facility] MAMMO, screening, bilateral 03/20/[address] [facility] [address], abdomen + pelvis, w/wo contrast 03/20/2017 [facility] MRI, brain, w/o contrast 01/31/2016 [facility] Blood transfusion [id number] [facility] CABG x 3 - Coronary artery bypass grafts x 3 [id number] [facility] Gallbladder operation [id number] [facility] Mastectomy [id number] [facility] Breast Surgery [facility] Hysterectomy (Partial) [facility] Cholecystectomy [facility]
--- OUTSIDE RECORDS SUMMARY | 2018-04-25 13:37 | XMS REPORT ---
Author Author [facility] Address Unknown Phone Unavailable Care Team Providers Care Hide Stretcher Hand Name Role Phone Unavailable Unavailable Payers Payer Name Policy Type Policy Number Effective Date Expiration Date Problems This patient has no known problems. Allergies, Adverse Reactions, Alerts Allergy Name Allergy Type Status Severity Reaction(s) Onset Date Inactive Date Treating Clinician Comments iodine DA Active [place] 2012-04-28 00:00:00 codeine DA Active [place] 2012-04-28 00:00:00 Medications This patient has no known medications.
--- OUTSIDE RECORDS SUMMARY | 2018-04-25 13:37 | XMS REPORT ---
Author Organization Unknown Address [address] [place] [address] Phone [phone] Care Team Providers Care Cigar Packer And Picker Name Role Phone MARCIAL WU MD 82 [phone] KARLIE BARNES MD (OPHTHALMOLOGY) 111 [phone] JOHN "MARÍA BARNES MD 3 [phone] Allergies Code Code System Name Reaction Severity Status Onset Codeine Sulfate Active 10/11/2015 Iodinated Contrast- Oral and Iv Dye Active 10/11/2015 Medications Name Status Start Date Stop Date Accu-Chek Macey strips Check blood glucose 2 - 3 times a day Active Not available amlodipine 10 mg tablet Take 1 tablet every day by oral route. Active Not available atorvastatin 40 mg tablet TAKE 1 TABLET ONCE A DAY ORALLY 90 DAYS Active Not available Augmentin 875 mg-125 mg tablet Take 1 tablet every 12 hours by oral route for 5 days. Completed 02/17/2016 baclofen 10 mg tablet take 1 tablet at onset of headache Completed 06/11/2016 Calcium 500 mg (1,250 mg) + D3 125 unit tablet Take 1 tablet every day by oral route. Active Not available clopidogrel 75 mg tablet Take 1 tablet every day by oral route. Active Not available Dexilant 60 mg capsule, delayed release Take 1 capsule every day by oral route for 90 days. Active Not available diazepam 10 mg tablet Take 1 tablet every day by oral route as needed for 30 days. Active Not available Flonase 50 mcg/Actuation nasl susp Inhale 1 spray every day by intranasal route. Completed 12/18/2016 fluticasone 50 mcg/actuation nasal spray,suspension USE 2 SPRAY IN EACH NOSTRIL ONCE A DAY NASALLY 30 DAY(S) Active Not available folic acid 400 mcg tablet Take 1 tablet every day by oral route. Active Not available Humalog KwikPen (U-100) Insulin 100 unit/mL subcutaneous Inject 10 units every day by subcutaneous route with meals. Completed 05/04/2016 Humalog Mix 75-25 (U-100) Insulin 100 unit/mL subcutaneous suspension INJECT 10-25 UNITS TWICE A DAY WITH BREAKFAST AND DINNER Completed 09/10/2016 isosorbide mononitrate ER 120 mg tablet,extended release 24 hr Take 1 tablet every day by oral route. Active Not available Januvia 100 mg tablet TAKE 1 TABLET BY MOUTH EVERY DAY Active Not available Lantus Solostar U-100 Insulin 100 unit/mL (3 mL) subcutaneous pen Inject 28 units every day by subcutaneous route in the evening. Completed 05/04/2016 Levemir FlexTouch U-100 Insulin 100 unit/mL (3 mL) subcutaneous pen INJECT 10-30 UNITS SUBCUTANEOUSLY AT BEDTIME DIRECTED Active Not available loperamide 2 mg tablet Take 2 tablets 4 times a day by oral route as needed for 30 days. Active Not available losartan 100 mg tablet Take 1 tablet every day by oral route. Active Not available megestrol 400 mg/10 mL (40 mg/mL) oral suspension TAKE 10 ML BY MOUTH EVERY DAY Active Not available meloxicam 15 mg tablet take 1 tablet every day for 1 week; rest 1 week and repeat Active Not available metformin 500 mg tablet TAKE 1 TABLET BY MOUTH TWICE A DAY Active Not available metoprolol tartrate 100 mg tablet TAKE 1 TABLET BY MOUTH TWICE A DAY Active Not available mupirocin 2 % topical ointment APPLY A SMALL AMOUNT TO THE AFFECTED AREA BY TOPICAL ROUTE 3 TIMES PER DAY Active Not available nitroglycerin 0.[address] 1 tablet every day by sublingual route. Completed 12/18/2016 nitroglycerin 400 mcg/spray translingual APPLY 1 PUFF ON TONGUE TRANSLINGUALLY EVERY DAY Active Not available NovoFine 30 30 gauge x 1/3" needle USE DIRECTED TWICE A DAY Active Not available Novolog Mix 70-30 FlexPen U-100 Insulin 100 unit/mL subcutaneous pen INJECT 10-25 UNITS TWICE A DAY WITH BREAKFAST AND DINNER Active Not available ondansetron HCl 8 mg tablet Take 1 tablet every 8 hours by oral route as needed for 15 days. Active Not available sulfamethoxazole 800 mg-trimethoprim 160 mg tablet Take 1 tablet every 12 hours by oral route for 10 days. Active Not available Problems Name Status Onset Date Source History of Mastectomy Active 04/29/1996 Type 2 Diabetes Mellitus without Complication Unknown 05/13/2015 History Mixed Hyperlipidemia Active 05/13/2015 History Anxiety Active 05/13/2015 History Hypertensive Heart Disease Active 05/13/2015 History Personal History of Primary Malignant Neoplasm of Breast Active 05/13/2015 History History of Gastrointestinal Disease Unknown 05/13/2015 History Coronary Bypass Graft Finding Active 05/13/2015 History Type 2 Diabetes Mellitus Unknown 08/31/2015 History Peripheral Arterial Occlusive Disease Active 03/01/2016 Coronary Arteriosclerosis in [place] Artery Active 03/28/2016 Hiatal Hernia Active 04/09/2016 Long-term Current Use of Anticoagulant Active 04/09/2016 Type II Diabetes Mellitus Uncontrolled Active 05/04/2016 Empty Sella Syndrome Active 12/18/2016 Gastroesophageal Reflux Disease without Esophagitis Active 12/18/2016 Osteopenia Active 06/20/2017 Procedures Date Name Performed by Breast Surgery Notes: removal Information not available Hysterectomy (Partial) Information not available Cholecystectomy Information not available 01/31/2016 MRI, Brain, W/o Contrast [facility] ([facility]) [address] [place] [address] (Work Place) 03/20/2017 Bone Density [facility] [address] [place] [address] (Work Place) 03/20/2017 MAMMO, Screening, Bilateral [facility] [address] [place] [address] (Work Place) 03/20/2017 CT, Abdomen + Pelvis, W/wo Contrast [facility] [address] [place] [address] [phone]) (Work Place) 03/31/2017 CT, Abdomen + Pelvis, W/o Contrast [facility] [address] [place] [address] (Work Place) Notes: TRIPPLE BY[facility] STENTS IN HE[facility] Lab Results Date Name Specimen Result Interpretation Description Value Range Status Address 06/20/2017 CMP, Serum or Plasma Alt 16 U/L 0-55 U/L Final [facility]: [address] Ast 19 U/L 5-34 U/L Final [facility]: [address] Low Bun 7.1 mg/dL 9.8-20.1 mg/dL Final [facility]: [address] Alk Phos 142 unit/L 40-150 unit/L Final [facility]: [address] [facility] Glucose 321 mg/dL 70-99 mg/dL Final [facility]: [address] [facility] Low Albumin 3.3 g/dL 3.5-5.0 g/dL Final [facility]: [address]co [address] [place] [address] Creatinine 0.87 mg/dL 0.57-1.11 mg/dL Final [facility]: [address]elina Kennedy [address] eGFR Non- >60 mL/min/1.73m2 >60 mL/min/1.73m2 Final [facility]: [address] Adelina Kennedy [address] Total Bilirubin 0.6 mg/dL 0.2-1.2 mg/dL Final [facility]: [address] Adelina Greco [address] [place] [address] eGFR - >60 mL/min/1.73m2 >60 mL/min/1.73m2 Final [facility]: [address]elina Kennedy [address] Sodium 137 mEq/L 136-145 mEq/L Final [facility]: [address]elina Kennedy [address] Potassium 3.6 mEq/L 3.5-5.1 mEq/L Final [facility]: [address] Adelina Greco [address] [place] [address] Chloride 101 mmol/L 98-107 mmol/L Final [facility]: [address] Adelina Greco [address] [place] [address] Total Protein 7.4 g/dL 6.4-8.3 g/dL Final [facility]: [address] Adelina Kennedy [address] Calcium 9.1 mg/dL 8.4-10.2 mg/dL Final [facility]: [address]elina Kennedy [address] Co2 27.1 mmol/L 23.0-31.0 mmol/L Final [facility]: 9055 Adelina Kennedy [facility] Anion Gap 9 calc Final [facility]: 9055 [facility] 06/20/2017 Lipid Panel, Serum Hdl 53 mg/dL 40-60 mg/dL Final [facility]: [address] Adelina Kennedy [address] Triglyceride 89 mg/dL 0-149 mg/dL Final [facility]: [address] VLDL Calc. 18 mg/dL Final [facility]: [address] cholesterol/HDL Ratio 2.6 mg/dL Final [facility]: [address] non-HDL Cholesterol Calc. 85 mg/dL 0-160 mg/dL Final [facility]: [address] Cholesterol 138 mg/dL 0-199 mg/dL Final [facility]: [address] LDL Calc. 67 mg/dL 0-130 mg/dL Final [facility]: [address] [place] [address] 06/20/2017 Vitamin D, 25-Hydroxy, Total, Serum Vitamin D 25OH 33.8 NG/mL 30.0-96.0 NG/mL Final [facility]: [address] [place] [address] 06/20/2017 HbA1C (Hemoglobin a1C), Blood High A1C W/eag 10.7 % 1.0- 5.7 % Final [facility]: [address] [place] [address] Average Blood Glucose 260 mg/dL Final [facility]: [address] [place] [address] 03/25/2017 Fecal Occult Blood, Stool ABNORMAL Fecal Globin (Medicare) by Immunochemistry detected Final [facility]: [address] [place] [address] 03/20/2017 Lipase, Serum or Plasma Normal Lipase 15 U/L 7-60 U/L Final [facility]: [address] [place] [address] 03/20/2017 HbA1C (Hemoglobin a1C), Blood High Hemoglobin a1C 10.5 % of total HGB <5.7 % of total HGB Final [facility]: [address] EAG (mg/dL) 255 (calc) Final [facility]: [address] EAG (mmol/L) 14.1 (calc) Final [facility]: [address] [place] [address] 03/20/2017 CMP, Serum or Plasma High Glucose 124 mg/dL 65-99 mg/dL Final [facility]: [address] [place] [address] Normal Urea Nitrogen (BUN) 13 mg/dL 7-25 mg/dL Final [facility]: [address] Adelina Greco [address] [place] [address] Normal Creatinine 0.89 mg/dL 0.60-0.93 mg/dL Final [facility]: [address] Adelina Kennedy [address] Normal eGFR Non-afr. [place] 65 mL/min/1.73m2 > or=60 mL/min/1.73m2 Final [facility]: [address] Adelina Kennedy [address] Normal eGFR 75 mL/min/1.73m2 > or=60 mL/min/1.73m2 Final [facility]: [address]elina Kennedy [address] BUN/creatinine Ratio not applicable (calc) 6-22 (calc) Final [facility]: [address] Adelina Greco [address] [place] [address] Normal Sodium 140 mmol/L 135-146 mmol/L Final [facility]: [address] Adelina Kennedy [address] Normal Potassium 4.6 mmol/L 3.5-5.3 mmol/L Final [facility]: [address] Adelina Kennedy [address] Normal Chloride 103 mmol/L 98-110 mmol/L Final [facility]: [address] Adelina Kennedy [address] Normal Carbon Dioxide 28 mmol/L 20-31 mmol/L Final [facility]: [address] Adelina Kennedy [address] Normal Calcium 10.1 mg/dL 8.6-10.4 mg/dL Final [facility]: [address] Adelina Kennedy [address] Normal Protein, Total 7.6 g/dL 6.1-8.1 g/dL Final [facility]: [address]ina Kennedy [address] Normal Albumin 4.1 g/dL 3.6-5.1 g/dL Final [facility]: [address] Adelina Kennedy [address] Normal Globulin 3.5 g/dL (calc) 1.9-3.7 g/dL (calc) Final [facility]: [address] Kennedy [address] Normal Albumin/globulin Ratio 1.2 (calc) 1.0-2.5 (calc) Final [facility]: [address]el[address] Kennedy [address] Normal Bilirubin, Total 1.0 mg/dL 0.2-1.2 mg/dL Final [facility]: [address] Normal Alkaline Phosphatase 110 U/L 33-130 U/L Final [facility]: [address] Adelina Whitaker [place] Normal Ast 17 U/L 10-35 U/L Final [facility]: [address] Adelina Whitaker [place] Normal Alt 13 U/L 6-29 U/L Final [facility]: [address] Cirilo Seo 03/20/2017 CBC W/ Auto Diff Normal White Blood Cell Count 7.6 thousand/uL 3.8-10.8 thousand/uL Final [facility]: [address] Adelina Whitaker [place] Normal Red Blood Cell Count 4.26 million/uL 3.80-5.10 million/uL Final [facility]: [address] Whit[address] [place] Normal Hemoglobin 12.3 g/dL 11.7-15.5 g/dL Final [facility]: [address] Adelina Whitaker [place] Normal Hematocrit 37.0 % 35.0-45.0 % Final [facility]: [address] Adelina Whitaker [place] Normal Mcv 86.9 fL 80.0-100.0 fL Final [facility]: [address] Adelina Whitaker [place] Normal Mch 28.9 pg 27.0-33.0 pg Final [facility]: [address] Adelina Whitaker [place] Normal Mchc 33.2 g/dL 32.0-36.0 g/dL Final [facility]: [address] Adelina Whitaker [place] Normal Rdw 12.3 % 11.0-15.0 % Final [facility]: [address] Adelina Whitaker [place] Normal Platelet Count 221 thousand/uL 140-400 thousand/uL Final [facility]: [address] Adelina Whitaker [place] High Mpv 12.6 fL 7.5-12.5 fL Final [facility]: [address]055 Adelina Whitaker [place] Normal Absolute Neutrophils 4507 cells/uL 5111-9086 cells/uL Final [facility]: [address] Adelina Whitaker [place] Normal Absolute Lymphocytes 2310 cells/uL 850-3900 cells/uL Final [facility]: [address] Adelina Whitaker [place] Normal Absolute Monocytes 684 cells/uL 200-950 cells/uL Final [facility]: [address] Adelina Kennedy [address] Normal Absolute Eosinophils 38 cells/uL 15-500 cells/uL Final [facility]: [address] Adelina Kennedy [address] Normal Absolute Basophils 61 cells/uL 0-200 cells/uL Final [facility]: [address] Adelina Kennedy [place] [address], [place] Normal Neutrophils 59.3 % Final [facility]: [address] Adelina Kennedy [address] Normal Lymphocytes 30.4 % Final [facility]: [address] Adelina Kennedy [place] [address], [place] Normal Monocytes 9.0 % Final [facility]: [address] Normal Eosinophils 0.5 % Final [facility]: [address]elina Kennedy [address] Normal Basophils 0.8 % Final [facility]: [address] Adelina Kennedy [address] 03/20/2017 Erythrocyte Sedimentation Rate by Westergren Method Normal Sed Rate by Modified [place]gren 28 mm/h < or=30 mm/h Final [facility]: [address] Ad[address] olivier [address] 03/20/2017 Amylase, Serum or Plasma Normal Amylase 53 U/L 21-101 U/L Final [facility]: [address] Ad[address] olivier [address] 03/20/2017 Culture, Urine Culture, Urine, Routine see note Final [facility]: [address] Adelina Kennedy [address] 12/18/2016 Prealbumin, Serum Normal Prealbumin 23 mg/dL 17-34 mg/dL Final [facility]: [address] Adelina Kennedy [address] 12/18/2016 CBC W/ Auto Diff Wbc 6.13 x10*3/L 3.98-10.04 x10*3/L Final [facility]: [address] Rbc 4.43 10*12/L 3.93-5.22 10*12/L Final [facility]: [address]ina Kennedy [address] Hemoglobin 12.80 g/dL 11.20-15.70 g/dL Final [facility]: [address] Hematocrit 39.9 % 34.1-44.9 % Final [facility]: [address] Kennedy [address] Mcv 90.1 fL 80.0-100.0 fL Final [facility]: [address] Ad[address] Whitaker [place] Mch 28.9 pg 25.6-32.2 pg Final [facility]: [address] Adel[address] Whitaker [place] Low Mchc 32.1 g/dL 32.2-35.5 g/dL Final [facility]: [address] Adel[address] Whitaker [place] RDW-SD 42.8 fL 36.4-46.3 fL Final [facility]: [address] Adel[address] Whitaker [place] Platelet Count 197.0 k/uL 182.0-369.0 k/uL Final [facility]: [address] Whitaker [place] High Mpv 12.8 fL 7.5-11.5 fL Final [facility]: [address] Adelina Whitaker [place] Neut% 55.0 % 34.0-71.1 % Final [facility]: [address] Adelina Whitaker [place] Lymph% 31.6 % 19.3-51.7 % Final [facility]: [address] Adelina Whitaker [place] Mon% 10.0 % 4.7-12.5 % Final [facility]: [address] Adelina Whitaker [place] Eos% 2.9 % 0.7-5.8 % Final [facility]: [address] Adelina Whitaker [place] Baso% 0.5 % 0.1-1.2 % Final [facility]: [address] Adelina Whitaker [place] Neut# 3.4 x10*3/L 1.6-6.1 x10*3/L Final [facility]: [address] Adelina Whitaker [place] Lymph# 1.9 x10*3/L 1.2-3.7 x10*3/L Final [facility]: [address] Adelina Whitaker [place] Mon# 0.6 x10*3/L 0.2-0.9 x10*3/L Final [facility]: [address] Adelina Whitaker [place] Eos# 0.18 x10*3/L 0.04-0.36 x10*3/L Final [facility]: [address] Ad[address] Whitaker [place] Baso# 0.03 x10*3/L 0.01-0.08 x10*3/L Final [facility]: 9055 [facility] 12/18/2016 CMP, Serum or Plasma Alt 21 U/L 0-55 U/L Final [facility]: 9055 Adelina Whitaker, [place] Ast 24 U/L 5-34 U/L Final [facility]: [address] Bun 11.6 mg/dL 9.8-20.1 mg/dL Final [facility]: [address] Greco [address] [place] [address] High Alk Phos 158 unit/L 40-150 unit/L Final [facility]: [address]ina Kennedy [address] Glucose 84 mg/dL 70-99 mg/dL Final [facility]: [address] Kennedy [address] Albumin 3.8 g/dL 3.5-5.0 g/dL Final [facility]: [address]ina Kennedy [address] Creatinine 0.85 mg/dL 0.57-1.11 mg/dL Final [facility]: [address] Adelina Kennedy [address] eGFR Non- >60 mL/min/1.73m2 >60 mL/min/1.73m2 Final [facility]: [address]ina Kennedy [address] Total Bilirubin 0.8 mg/dL 0.2-1.2 mg/dL Final [facility]: [address]elina Kennedy [address] eGFR - >60 mL/min/1.73m2 >60 mL/min/1.73m2 Final [facility]: [address] Adelina Greco [address] [place] [address] High Sodium 149 mEq/L 136-145 mEq/L Final [facility]: [address]elina Kennedy [address] High Potassium 5.3 mEq/L 3.5-5.1 mEq/L Final [facility]: 9055 [facility] High Chloride 108 mmol/L 98-107 mmol/L Final [facility]: [address]elina Kennedy [address] Total Protein 8.2 g/dL 6.4-8.3 g/dL Final [facility]: 9055 [facility] High Calcium 10.5 mg/dL 8.4-10.2 mg/dL Final [facility]: [address] Co2 30.6 mmol/L 23.0-31.0 mmol/L Final [facility]: [address] Anion Gap 10 calc Final [facility]: [address] 12/18/2016 Lipid Panel, Serum Hdl 57 mg/dL 40-60 mg/dL Final [facility]: [address] Triglyceride 52 mg/dL 0-149 mg/dL Final [facility]: [address] VLDL Calc. 10 mg/dL Final [facility]: [address] cholesterol/HDL Ratio 3 mg/dL Final [facility]: [address] non-HDL Cholesterol Calc. 97 mg/dL 0-160 mg/dL Final [facility]: [address] Cholesterol 154 mg/dL 0-199 mg/dL Final [facility]: [address] LDL Calc. 87 mg/dL 0-130 mg/dL Final [facility]: [address] 12/18/2016 T4, Total, Serum T4 Total 7.77 ug/dL 4.87-11.72 ug/dL Final [facility]: [address] 12/18/2016 TSH, Serum or Plasma Tsh 1.054 uIU/mL 0.350-4.940 uIU/mL Final [facility]: [address] 12/18/2016 HbA1C (Hemoglobin a1C), Blood High A1C W/eag 10.4 % 1.0- 5.7 % Final [facility]: [address] Average Blood Glucose 252 mg/dL Final [facility]: [address] 09/10/2016 HbA1C (Hemoglobin a1C), Blood High Hemoglobin a1C 11.3 % of total HGB <5.7 % of total HGB Final [facility]: [address] EAG (mg/dL) 278 (calc) Final [facility]: [address] EAG (mmol/L) 15.4 (calc) Final [facility]: 9055 [facility] 09/10/2016 CMP, Serum or Plasma High Glucose 361 mg/dL 65-99 mg/dL Final [facility]: [address]ina Kennedy [address] Normal Urea Nitrogen (BUN) 11 mg/dL 7-25 mg/dL Final [facility]: [address]iv[address] High Creatinine 1.07 mg/dL 0.60-0.93 mg/dL Final [facility]: [address]ivier [address] Low eGFR Non-afr. [place] 52 mL/min/1.73m2 > or=60 mL/min/1.73m2 Final [facility]: [address] olivier [address] Normal eGFR 60 mL/min/1.73m2 > or=60 mL/min/1.73m2 Final [facility]: [address] olivier [address] Normal BUN/creatinine Ratio 10 (calc) 6-22 (calc) Final [facility]: [address]elina Kennedy [address] Normal Sodium 135 mmol/L 135-146 mmol/L Final [facility]: [address] olivier [address] Normal Potassium 4.3 mmol/L 3.5-5.3 mmol/L Final [facility]: [address]elina Kennedy [address] Normal Chloride 99 mmol/L 98-110 mmol/L Final [facility]: [address] olivier [address] Normal Carbon Dioxide 26 mmol/L 20-31 mmol/L Final [facility]: [address] Adelina Kennedy [address] Normal Calcium 9.7 mg/dL 8.6-10.4 mg/dL Final [facility]: [address] olivier [address] Normal Protein, Total 7.4 g/dL 6.1-8.1 g/dL Final [facility]: [address] olivier [address] Normal Albumin 3.8 g/dL 3.6-5.1 g/dL Final [facility]: [address]ivier [address] Normal Globulin 3.6 g/dL (calc) 1.9-3.7 g/dL (calc) Final [facility]: [address] Normal Albumin/globulin Ratio 1.1 (calc) 1.0-2.5 (calc) Final [facility]: [address] Normal Bilirubin, Total 0.6 mg/dL 0.2-1.2 mg/dL Final [facility]: [address] High Alkaline Phosphatase 145 U/L 33-130 U/L Final [facility]: [address]iv[address] Normal Ast 19 U/L 10-35 U/L Final [facility]: [address] Normal Alt 13 U/L 6-29 U/L Final [facility]: [address]055 [address] olivier [address] 09/10/2016 Lipid Panel, Serum Normal Cholesterol, Total 137 mg/dL 125- 200 mg/dL Final [facility]: [address] Normal HDL Cholesterol 60 mg/dL > or=46 mg/dL Final [facility]: [address] Normal Triglycerides 80 mg/dL <150 mg/dL Final [facility]: [address] Normal LDL-cholesterol 61 mg/dL (calc) <130 mg/dL (calc) Final [facility]: [address] Normal Chol/hdlc Ratio 2.3 (calc) < or=5.0 (calc) Final [facility]: [address] Normal Non HDL Cholesterol 77 mg/dL (calc) Final [facility]: [address] 06/11/2016 Lipid Panel, Serum Normal Cholesterol, Total 146 mg/dL 125- 200 mg/dL Final [facility]: [address], [place] Normal HDL Cholesterol 64 mg/dL > or=46 mg/dL Final [facility]: [address], [place] Normal Triglycerides 74 mg/dL <150 mg/dL Final [facility]: [address], [place] Normal LDL-cholesterol 67 mg/dL (calc) <130 mg/dL (calc) Final [facility]: [address], [place] Normal Chol/hdlc Ratio 2.3 (calc) < or=5.0 (calc) Final [facility]: [address] [facility], [place] Normal Non HDL Cholesterol 82 mg/dL (calc) Final [facility]: [address], [place] 06/11/2016 CMP, Serum or Plasma High Glucose 186 mg/dL 65-99 mg/dL Final [facility]: [address] [facility] [address], [place] Normal Urea Nitrogen (BUN) 8 mg/dL 7-25 mg/dL Final [facility]: [address] [facility], [place] Normal Creatinine 0.83 mg/dL 0.60-0.93 mg/dL Final [facility]: [address] [facility], [place] Normal eGFR Non-afr. [place] 70 mL/min/1.73m2 > or=60 mL/min/1.73m2 Final [facility]: [address] [facility], [place] Normal eGFR 82 mL/min/1.73m2 > or=60 mL/min/1.73m2 Final [facility]: [address] [facility] [address], [place] BUN/creatinine Ratio not applicable (calc) 6-22 (calc) Final [facility]: [address] [facility] [address], [place] Normal Sodium 140 mmol/L 135-146 mmol/L Final [facility]: [address], [place] Normal Potassium 4.0 mmol/L 3.5-5.3 mmol/L Final [facility]: [address] [facility], [place] Normal Chloride 104 mmol/L 98-110 mmol/L Final [facility]: [address], [place] Normal Carbon Dioxide 29 mmol/L 20-31 mmol/L Final [facility]: [address] [facility], [place] Normal Calcium 9.4 mg/dL 8.6-10.4 mg/dL Final [facility]: [address], [place] Normal Protein, Total 7.5 g/dL 6.1-8.1 g/dL Final [facility]: [address] [facility] [address], [place] Normal Albumin 4.1 g/dL 3.6-5.1 g/dL Final [facility]: [address], [place] Normal Globulin 3.4 g/dL (calc) 1.9-3.7 g/dL (calc) Final [facility]: [address], [place] Normal Albumin/globulin Ratio 1.2 (calc) 1.0-2.5 (calc) Final [facility]: [address], [place] Normal Bilirubin, Total 0.6 mg/dL 0.2-1.2 mg/dL Final [facility]: [address] [facility], [place] High Alkaline Phosphatase 138 U/L 33-130 U/L Final [facility]: [address] [facility], [place] Normal Ast 17 U/L 10-35 U/L Final [facility]: [address] [place] [address], [place] Normal Alt 15 U/L 6-29 U/L Final [facility]: [address], [place] 06/11/2016 CBC W/ Auto Diff Normal White Blood Cell Count 6.0 thousand/uL 3.8-10.8 thousand/uL Final [facility]: [address] [place] [address], [place] Normal Red Blood Cell Count 4.30 million/uL 3.80-5.10 million/uL Final [facility]: [address] [facility], [place] Normal Hemoglobin 12.4 g/dL 11.7-15.5 g/dL Final [facility]: [address] [place] [address], [place] Normal Hematocrit 37.7 % 35.0-45.0 % Final [facility]: [address] [place] [address], [place] Normal Mcv 87.6 fL 80.0-100.0 fL Final [facility]: [address] [place] [address], [place] Normal Mch 28.7 pg 27.0-33.0 pg Final [facility]: [address] [facility], [place] Normal Mchc 32.8 g/dL 32.0-36.0 g/dL Final [facility]: [address] [facility], [place] Normal Rdw 14.0 % 11.0-15.0 % Final [facility]: [address] [facility], [place] Normal Platelet Count 191 thousand/uL 140-400 thousand/uL Final [facility]: [address] [facility], [place] Normal Mpv 11.0 fL 7.5-12.5 fL Final [facility]: [address], [place] Normal Absolute Neutrophils 3792 cells/uL 6610-9004 cells/uL Final [facility]: [address], [place] Normal Absolute Lymphocytes 1728 cells/uL 850-3900 cells/uL Final [facility]: [address], [place] Normal Absolute Monocytes 360 cells/uL 200-950 cells/uL Final [facility]: [address], [place] Normal Absolute Eosinophils 78 cells/uL 15-500 cells/uL Final [facility]: [address], [place] Normal Absolute Basophils 42 cells/uL 0-200 cells/uL Final [facility]: [address], [place] Normal Neutrophils 63.2 % Final [facility]: [address] [place] [address], [place] Normal Lymphocytes 28.8 % [facility]: [address] [place], [place] [address], [place] Normal Monocytes 6.0 % Final [facility]: [address] [place] [address], [place] Normal Eosinophils 1.3 % [facility]: [address] [place] [address], [place] Normal Basophils 0.7 % [facility]: [address] [facility], [place] 06/11/2016 HbA1C (Hemoglobin a1C), Blood High Hemoglobin a1C 10.5 % of total HGB <5.7 % of total HGB Final [facility]: [address] [place], [place] [address], [place] Urinalysis, Dipstick Color Color yellow [facility]: [address] [facility] [address], [place] Color Appearance clear [facility]: [address] [facility] [address], [place] Color Glucose 500 [facility]: [address] [facility] [address], [place] Color Bilirubin negative [facility]: [address] [facility] [address], [place] Color Ketones negative [facility]: [address] [facility] [address], [place] Color Specific [place] 1.010 [facility]: [address] [facility] [address], [place] Color Blood trace [facility]: [address] [facility] [address], [place] Color PH 5.5 [facility]: [address] [facility] [address], [place] Color Protein trace [facility]: [address] [facility] [address], [place] Color Urobilinogen 0.2 [facility]: [address] [address], [place] Color Nitrites negative [facility]: [address] [address], [place] Color Leukocytes small [facility]: [address] [facility] [address], [place] Color Note [facility]: [address] [address], [place] Albumin:creatinine Ratio, Urine Type Urine Microlalbumin 80 mg/L [facility]: [address] [facility] [address], [place] Type Urine Creatinine 200 mg/dL [facility]: [address] [address], [place] Type A:C Ratio <30 mg/g (Normal) [facility]: [address] [address], [place] Past Encounters 08/02/2017 Acute Folliculitis; Empty Sella Syndrome SUJATHA Cho: [address] [place] [phone], Ph. 06/20/2017 Type II Diabetes Mellitus Uncontrolled; Hypertensive Heart Disease; Mixed Hyperlipidemia; Osteopenia; Anorexia Symptom; Coronary Arteriosclerosis in [place] Artery Juliette SotoBOOGIEP: [address] [place] [phone], Ph. 03/20/2017 Adult Health Examination; Body Mass Index 20-24 - Normal; Hypertensive Heart Disease; Coronary Arteriosclerosis in [place] Artery; Coronary Bypass Graft Finding; Type II Diabetes Mellitus Uncontrolled; Personal History of Primary Malignant Neoplasm of Breast; History of Mastectomy; Anxiety; Empty Sella Syndrome; Gastroesophageal Reflux Disease without Esophagitis; Immunization; Long-term Current Use of Anticoagulant; Hiatal Hernia; Mixed Hyperlipidemia; Long-term Current Use of Antiplatelet Drug; Advance Directive Discussed with Patient; Depression Screening; Screening for Malignant Neoplasm of Breast; Screening for Malignant Neoplasm of Colon; Screening for Osteoporosis; Abdominal Pain; Dysuria; Nausea; Diarrhea John Barnes MD: [address] [place] [phone], Ph. 12/18/2016 Body Mass Index 20-24 - Normal; Type II Diabetes Mellitus Uncontrolled; Anorexia Symptom; Empty Sella Syndrome; Gastroesophageal Reflux Disease without Esophagitis; Mixed Hyperlipidemia; Hypertensive Heart Disease John Barnes MD: [address] [facility], [address] [phone], Ph. 09/17/2016 Type II Diabetes Mellitus Uncontrolled; Stable Angina; Hypertensive Heart Disease; Coronary Arteriosclerosis in [place] Artery; Mixed Hyperlipidemia John Barnes MD: [address] [facility], [address] [phone], Ph. 09/10/2016 Type II Diabetes Mellitus Uncontrolled; Hypertensive Heart Disease; Mixed Hyperlipidemia SUJATHA Mariscal: [address] [place] [address], [address] [phone], Ph. 06/11/2016 Hypertensive Heart Disease; Type II Diabetes Mellitus Uncontrolled; Coronary Arteriosclerosis in [place] Artery; Mixed Hyperlipidemia; Personal History of Primary Malignant Neoplasm of Breast; History of Mastectomy; Shoulder Pain John Barnes MD: [address] [place] [phone], Ph. 05/04/2016 Anxiety; Type II Diabetes Mellitus Uncontrolled SWAPNA Jett: [address] [place] [phone], Ph. 03/07/2016 Type 2 Diabetes Mellitus; Hypertensive Heart Disease John Barnes MD: [address] [place] [phone], Ph. 02/17/2016 Type 2 Diabetes Mellitus without Complication; Hypertensive Heart Disease; Mixed Hyperlipidemia; Immunization; Tension-type Headache SWAPNA Jett: [address] [place] [phone], Ph. 01/31/2016 Cellulitis of Abdominal Wall; Headache; History of Gastrointestinal Disease; Anxiety SWAPNA Jett: [address] [place] [phone], Ph. Social History Smoking Status Never Smoker Vaccine List Vaccine Type influenza, high dose seasonal 02/17/20160.5 mL influenza, injectable, quadrivalent, preservative free 03/20/20170.5 mL pneumococcal conjugate PCV 13 04/29/2014 Tdap 04/29/2014 Plan of Care Reminders Provider Appointments None recorded. Lab None recorded. Referral None recorded. Procedures None recorded. Surgeries None recorded. Imaging None recorded. Vitals 08/02/2017 03:00PM Est Patient Height Weight BMI Blood Pressure 5 ft 4 in 121.4 lbs 20.8 kg/m2 132/66 mm[Hg] 06/20/2017 10:30AM Est Patient Height Weight BMI Blood Pressure 5 ft 4 in 121 lbs 20.8 kg/m2 114/60 mm[Hg] 03/20/2017 01:30PM Est Patient Height Weight BMI Blood Pressure 5 ft 4 in 121.6 lbs 20.9 kg/m2 117/68 mm[Hg] 12/18/2016 10:45AM Est Patient Height Weight BMI Blood Pressure 5 ft 4 in 120 lbs 20.6 kg/m2 139/73 mm[Hg] 09/17/2016 11:00AM Est Patient Height Weight BMI Blood Pressure 5 ft 4 in 119.6 lbs 20.5 kg/m2 145/77 mm[Hg] 09/10/2016 10:45AM Est Patient Height Weight BMI Blood Pressure 5 ft 4 in 117 lbs 20.1 kg/m2 90/60 mm[Hg] 06/11/2016 10:30AM Est Patient Height Weight BMI Blood Pressure 5 ft 4 in 119.6 lbs 20.5 kg/m2 138/74 mm[Hg] 05/04/2016 01:30PM Est Patient Height Weight BMI Blood Pressure 5 ft 4 in 117.8 lbs 20.2 kg/m2 137/74 mm[Hg] 03/07/2016 08:30AM Est Patient Height Weight BMI Blood Pressure 5 ft 4 in 113.4 lbs 19.5 kg/m2 118/66 mm[Hg] 02/17/2016 09:15AM Est Patient Height Weight BMI Blood Pressure 5 ft 4 in 114.2 lbs 19.6 kg/m2 120/69 mm[Hg] 01/31/2016 11:00AM Est Patient Height Weight BMI Blood Pressure 5 ft 4 in 111.8 lbs 19.2 kg/m2 117/78 mm[Hg] 10/11/2015 Height Weight BMI Blood Pressure 5 ft 4 in 113 lbs 19.39 kg/m2 112/66 mm[Hg] 09/27/2015 Height Weight BMI Blood Pressure 5 ft 4 in 112.8 lbs 19.36 kg/m2 119/64 mm[Hg] 08/31/2015 Height Weight BMI Blood Pressure 5 ft 4 in 111.6 lbs 19.15 kg/m2 111/64 mm[Hg] 08/19/2015 Height Weight BMI Blood Pressure 5 ft 4 in 111.8 lbs 19.19 kg/m2 110/76 mm[Hg] 07/19/2015 Height Weight BMI Blood Pressure 5 ft 4 in 111.4 lbs 19.12 kg/m2 114/65 mm[Hg] 05/20/2015 Height Weight BMI Blood Pressure 5 ft 4 in 113 lbs 19.39 kg/m2 122/58 mm[Hg] 05/13/2015 Height Weight BMI Blood Pressure 5 ft 4 in 110.8 lbs 19.02 kg/m2 112/54 mm[Hg]
[2018-04-25] MEDS ORDERED: ATORVASTATIN CA20 MG PO (14:03)
[2018-04-25] MEDS ORDERED: NOVOLOG MI100 UNIT/1 SC (14:03)
[2018-04-25] MEDS ORDERED: LEVEMIR100 UNIT/1 SC (14:03)
[2018-04-25] MEDS ORDERED: PANTOPRAZOLE SO40 MG PO (14:03)
[2018-04-25] MEDS ORDERED: METOPROLOL TART50 MG PO (14:03)
[2018-04-25] MEDS ORDERED: DIAZEPAM5 MG PO (14:03)
[2018-04-25] MEDS ORDERED: LOSARTAN POTAS100 MG PO (14:03)
[2018-04-25] MEDS ORDERED: CALCET TABLET1 EACH PO (14:03)
[2018-04-25] MEDS ORDERED: CLOPIDOGREL75 MG PO (14:03)
[2018-04-25] MEDS ORDERED: ASPIRIN325 MG PO (14:03)
[2018-04-25] MEDS ORDERED: [UNRECOGNIZED DRUG - OTHER] TL (14:03)
[2018-04-25] MEDS ORDERED: FOLIC ACID1 MG PO (14:03)
[2018-04-25] MEDS ORDERED: AMLODIPINE BESY10 MG PO (14:03)
[2018-04-25] MEDS ORDERED: ISOSORBIDE MONO30 MG PO (14:03)
[2018-04-25] MEDS ORDERED: ALPRAZOLAM 0.5 MG TAB ONE (14:35)
[2018-04-25] MEDS ORDERED: DIPHENHYDRAMINE HCL 25 MG CAP ONE (14:36)
[2018-04-25 16:20] VITALS: BP 149/69
[2018-04-25] MEDS ORDERED: LIDOCAINE HCL 2% LOCAL 20 ML VIAL ONE (16:29)
[2018-04-25] MEDS ORDERED: FENTANYL CITRATE/PF 100MCG/2 ML INJ ONE (16:29)
[2018-04-25] MEDS ORDERED: IOPAMIDOL 370 MG/ML 200 ML INFUS..BTL INJ ONE ×2 (16:29→16:47)
[2018-04-25] MEDS ORDERED: HEPARIN SOD/SOD CHLORIDE 2,000 ML ONE (16:29)
[2018-04-25] MEDS ORDERED: MIDAZOLAM HCL 2 MG/2 ML VIAL ONE (16:29)
[2018-04-25] MEDS ORDERED: SODIUM CHLORIDE 0.9% 1000ML 1,000 ML ONE (16:30)
[2018-04-25] MEDS ORDERED: ASPIRIN 325 MG TAB ONE (16:51)
[2018-04-25] MEDS ORDERED: PRASUGREL 10 MG TAB ONE (16:51)
--- OUTSIDE RECORDS SUMMARY | 2018-04-25 18:03 | XMS REPORT | Clinical Summary ---
Author Author DIANA [employer] [facility] Address Unknown Phone Unavailable Care Team Providers Care Steeplechase Jockey Name Role Phone Lg Dawson MD PCP [...] Advance Directives For more information, please contact: [facility] [address] [place] [address] Date Inactivated Comments Code Status Date Activated 04/17/2015 4:21 PM Full Code 04/15/2015 4:54 AM This code status was determined by: Patient
[2018-04-25] MEDS ORDERED: DIAZEPAM 5 MG TAB PO PRN (19:00)
[2018-04-25] MEDS ORDERED: MORPHINE SULFATE INJ 4 MG/ML INJ IV PRN (19:00)
[2018-04-25] MEDS ORDERED: MORPHINE SULFATE 2 MG/ML SYR IV PRN (19:00)
[2018-04-25] MEDS ORDERED: HYDRALAZINE HCL 20 MG/ML VIAL IV PRN (19:00)
[2018-04-25 20:00] VITALS: BP 159/72
--- NOTE | 2018-04-25 21:22 | NUR ---
Patient noted to have increased bleeding at right groin site post cardiac cath. Had another nurse come check and dressing was reinforced. Patient expressed earlier she'd prefer a female to help her with bedpan. Another nurse will trade patient's with me to respect patient's wishes. Report given to Gardenia GLYNN..
[2018-04-25 21:40] VITALS: BP 159/72
--- NOTE | 2018-04-25 22:28 | NUR ---
PATIENT C/O SHORTNESS OF BREATH; HEAD OF BED ELEVATED, OXYGEN AT 2L/NC APPLIED WITH SATURATION READING 100%. PRESSURE DRESSING INTACT TO THE RIGHT GROIN WITH SMALL AMOUNT OF BLOOD NOTED TO THE DRESSING. NO HEMATOMA NOTED, PATIENT DENIES PAIN. CALL LIGHT WITHIN EASY REACH, WILL CONTINUE TO CLOSELY MONITOR THE SITE.
--- NOTE | 2018-04-25 23:52 | NUR ---
MODERATE AMOUNT OF BLOOD NOTED TO THE RIGHT GROIN DRESSING, NO HEMATOMA NOTED. PRESSURE DRESSING REINFORCED WITH PRESSURE APPLIED TO THE SITE FOR 15MINUTES. PATIENT ASSISTED WITH ADLS, SHE WAS EDUCATED TO USE THE BEDPAN AND TO MAINTAIN BEDREST FOR NOW. CALL LIGHT WITHIN EASY REACH, WILL CONTINUE TO MONITOR.
[2018-04-26] VITALS: BP 171/78
--- NOTE | 2018-04-26 00:32 | NUR ---
DRESSING DRY AND INTACT TO THE RIGHT GROIN, NO HEMATOMA NOTED TO THE SITE.
[2018-04-26 04:00] VITALS: BP 160/72
--- NOTE | 2018-04-26 04:06 | NUR ---
NO RESPIRATORY DISTRESS OBSERVED, PATIENT DENIES CHEST PAIN. MODERATE AMOUNT OF BLOOD NOTED TO THE RIGHT GROIN DRESSING, DRESSING REINFORCED WITH PRESSURE APPLIED TO THE SITE. PULSES PALPABLE, HEAD OF BED FLAT, PATIENT INSTRUCTED TO KEEP THE LEGS STRAIGHT.
--- NOTE | 2018-04-26 06:45 | NUR ---
Handoff report and walking rounds with outgoing fast food shift lead nurse. R groin is oozing blood. Outgoing fast food shift lead nurse reinforced dressing.
--- NOTE | 2018-04-26 07:05 | NUR ---
SHIFT CHANGE WALKING ROUNDS MADE, MODERATE AMOUNT OF BLOOD SATURATED THE DRESSING. DRESSING WAS REINFORCED; PATIENT IS SCHEDULE FOR PLAVIX AND ASPIRIN THIS MORNING, RECEIVING NURSE TO NOTIFY THE DOCTOR OF BLEED TO THE RIGHT GROIN AND FIND OUT IF BLOOD THINNERS SHOULD BE ADMINISTER.
[2018-04-26 07:13] LABS: BASOPHILS % 0.1 % (0.0-1.0); HEMATOCRIT 34.4 % (34.2-44.1); HEMOGLOBIN 11.8 g/dL (12.0-16.0); LYMPHOCYTES % 13.9 % (18.0-39.1); MEAN CORPUSCULAR HEMOGLOBIN 29.2 pg (28-32); MEAN CORPUSCULAR HGB CONC 34.3 g/dL (31-35); MEAN CORPUSCULAR VOLUME 85.1 fL (81-99); MONOCYTES # (AUTO) 1.1 (0.2-0.8); MONOCYTES % 7.9 % (4.4-11.3); NEUTROPHILS # (AUTO) 10.9 (2.1-6.9); NEUTROPHILS % 77.7 % (38.7-80.0); PLATELET COUNT 206 x10e3/uL (140-360); RED BLOOD COUNT 4.04 x10e6/uL (3.6-5.1)
--- NOTE | 2018-04-26 07:20 | NUR ---
Dr. Piedra paged to inform of large blood clot from r groin. Awaiting call back.
[2018-04-26 07:28] LABS: ANION GAP 15.8 mmol/L (8-16); BLOOD UREA NITROGEN 13 mg/dL (7-26); BUN/CREATININE RATIO 14 (6-25); CALCIUM 9.2 mg/dL (8.4-10.2); CARBON DIOXIDE 24 mmol/L (22-29); CHLORIDE 103 mmol/L (98-107); CREATININE, SERUM 0.92 mg/dL (0.57-1.11); EST GLOMERULAR FILTRATION RATE > 60 ML/MIN (60-); GLUCOSE 311 mg/dL (74-118); SODIUM 140 mmol/L (136-145)
[2018-04-26 07:30] LABS: POTASSIUM 2.8 mmol/L (3.5-5.1)
--- NOTE | 2018-04-26 07:39 | NUR ---
Senior C Software Engineer to bedside to discuss plan of care with patient/family. CM/SW role and care transitions discussed. Anticipated discharge plan discussed along with duration of care. CM/SW discussed patients right to make decisions in care. CM/SW work hours given. Patient lives: with [facility] Admit/Transfer: from labor and employment paralegal POA/Emergency contact: beatriz Sweeney [phone] Current/Previous Home Health: none PCP/Follow-up Care: Dr. Kuldeep Barnes Current/Previous DME: none Other Services: none Employment Status: retired Areas of Concerns: none Referral Needs: none Education Needs: medical management IMM/RAHMAN given and signed (if applicable): RAHMAN, signed copy in chart. copy to pt. Goal for discharge: home; beatriz Quintana will provide transportation CM/SW left business card at the bedside with contact information. Name and number was also written on the patients whiteboard. Patient verbalized understanding of discussion. CM will follow-up with ongoing discharge and transition of care needs.
--- NOTE | 2018-04-26 07:45 | NUR ---
Call back rec'd from Dr. Woodruff, informed of large blood clot and critical potassium. Instructed to "inform Dr. Piedra when he comes to round this morning". Requested assistance from minilab operator nurses, 2 minilab operator nurses at bedside. Dr. Piedra paged again. Holding pressure at site at this time.
[2018-04-26 08:00] VITALS: BP 164/74
[2018-04-26 08:00] LABS: BASOPHILS % 0.1 % (0.0-1.0); HEMATOCRIT 35.3 % (34.2-44.1); LYMPHOCYTES # (AUTO) 2.4 (1.0-3.2); LYMPHOCYTES % 15.9 % (18.0-39.1); MEAN CORPUSCULAR HEMOGLOBIN 29.4 pg (28-32); MEAN CORPUSCULAR VOLUME 86.5 fL (81-99); MONOCYTES # (AUTO) 1.2 (0.2-0.8); MONOCYTES % 8.3 % (4.4-11.3); NEUTROPHILS # (AUTO) 11.1 (2.1-6.9); NEUTROPHILS % 75.2 % (38.7-80.0); PLATELET COUNT 210 x10e3/uL (140-360); RED BLOOD COUNT 4.08 x10e6/uL (3.6-5.1)
--- NOTE | 2018-04-26 08:20 | NUR ---
drop crew laborer RN achieved hemostasis to R groin. Pressure dressing applied. Pt tolerated well.
[2018-04-26 09:00] VITALS: BP 164/74
[2018-04-26] MEDS ORDERED: PANTOPRAZOLE SOD 40 MG TABEC PO SCH (09:00)
[2018-04-26] MEDS ORDERED: LOSARTAN POTASSIUM 100 MG TAB PO SCH (09:00)
[2018-04-26] MEDS ORDERED: AMLODIPINE BESYLATE 10 MG TAB PO SCH (09:00)
[2018-04-26] MEDS ORDERED: CLOPIDOGREL BISULFATE 75 MG TAB PO SCH (09:00)
[2018-04-26] MEDS ORDERED: ISOSORBIDE MONONITRATE 30 MG TAB CR PO SCH (09:00)
[2018-04-26] MEDS ORDERED: ATORVASTATIN 20 MG TAB PO SCH (09:00)
[2018-04-26] MEDS ORDERED: OYST-CAL-D 500MG TABLET PO SCH (09:00)
[2018-04-26] MEDS ORDERED: FOLIC ACID 1 MG TAB PO SCH (09:00)
[2018-04-26] MEDS ORDERED: ASPIRIN 325 MG TAB PO SCH (09:00)
[2018-04-26] MEDS: METOPROLOL TARTRATE 50 MG TAB PO SCH ×2 (10:00→17:56)
--- NOTE | 2018-04-26 11:50 | NUR ---
Dr. Ranjan joseph.
[2018-04-26] MEDS ORDERED: POTASSIUM CHLORIDE 10MEQ EA PO NR ×2 (12:00→15:00)
[2018-04-26 12:26] VITALS: BP 140/67
--- NOTE | 2018-04-26 12:52 | Operative Report ---
DATE OF PROCEDURE: April 25, 2018 INDICATIONS: Coronary artery disease, abnormal stress test. PROCEDURES PERFORMED 1. Left heart catheterization, selective coronary angiography. 2. Selective cannulation of 3 venous bypass conduits. 3. Stent placement to the saphenous vein bypass graft to the right coronary artery. 4. Deployment of right groin Angio-Seal closure device. COMPLICATIONS: None. RECOMMENDATIONS: Dual-antiplatelet therapy for life. Access obtained of the right femoral artery. A 6-Finnish sheath was placed. Coronary angiography demonstrated occluded left anterior descending artery. Circumflex mid 80% stenosis, 1.5 mm vessel, not amenable to intervention. Right coronary artery was occluded. Saphenous vein bypass graft to the left anterior descending and diagonal arteries were patent with multiple stents that were widely patent. Right coronary artery bypass graft had focal 80% stenosis in its proximal portion with OTIS 2 flow. A decision was made to intervene on the saphenous vein bypass graft to the right coronary artery. It was cannulated using a multipurpose guiding catheter. A short wire was advanced across the lesion. Primary stent 2.25 x 12 mm [employer] Synergy was deployed at 12 atmospheres. Excellent end result, OTIS 3 flow. No complications. Right groin repaired using Angio-Seal. Patient was observed in the hospital overnight. Job#: [id number] NEYDA
[2018-04-26 16:00] VITALS: BP 156/84
--- NOTE | 2018-04-26 17:25 | NUR ---
Call placed to Dr. Piedra regarding HR and Lopressor. Per maribel Stephen to give Lopressor.
--- NOTE | 2018-04-26 18:24 | NUR ---
DISCHARGE INSTRUCTIONS GIVEN TO THE PATIENT VERBALLY AND WRITTEN. PATIENT VERBALIZES UNDERSTANDING ON R GROIN CARE; PT VERBALIZES UNDERSTANDING ON WHEN TO FOLLOW UP WITH DR. WU. A COPY OF CLOSURE DEVICE USED, STENT INFORMATION, CARDIAC RISK FACTOR INFORMATION, CARDIAC HEALTHY DIET INFORMATION, DISCHARGE INSTRUCTIONS ALL PLACED INSIDE PATIENT'S FOLDER AND GIVEN TO THE PATIENT. PT VOICES NO CONCERNS, PT VOICES NO QUESTIONS REGARDING DISCHARGE INSTRUCTIONS. PATIENT ESCORTED TO PERSONAL VEHICLE VIA WHEELCHAIR WITH ALL PERSONAL BELONGINGS AND IN STABLE CONDITION, ESCORTED BY NURSE TECH.
[2018-04-26] MEDS ORDERED: ATORVASTATIN 40 MG TAB PO SCH (21:00)
== END 2018-04-26 18:27 | disposition home or self-care (01) ==
LOC: CATH LAB 13:32 → IMCU 18:01
PROVIDERS: ADMIT Internal Medicine Interventional Cardiology; ATTEND Internal Medicine Interventional Cardiology
DX: I25.708 Atherosclerosis of coronary artery bypass graft(s), unspecified, with other forms of angina pectoris (principal); R94.39 Abnormal result of other cardiovascular function study; I10 Essential (primary) hypertension; Z88.5 Allergy status to narcotic agent; Z91.041 Radiographic dye allergy status; Z83.3 Family history of diabetes mellitus; Z82.49 Family history of ischemic heart disease and other diseases of the circulatory system; Z01.812 Encounter for preprocedural laboratory examination
CPT/HCPCS: 93455; C9604; 36415; 80048; 80053; 80061; 84132; 85025; 85610; 92928; C1769; C1874; G0378; J2001; J2250; J2270; J7030; Q9967